=== PATIENT | female | born 1990 | race African-American/Black ===

== ENCOUNTER 2018-06-13 20:21 | Inpatient (IN) | payer MEDICAID ==
[~2018-06-13] VITALS: Ht 165.1 cm; Wt 89.8 kg
[2018-06-13 20:29] VITALS: BP 134/78
--- NOTE | 2018-06-13 20:32 | NUR ---
ER Nurse Note: Pt came from home c/o abdominal pain since 06/11/18. Per EMS, pt is constipated for 2 or 3 days. Pt a&ox4, VSS. Pt stated last BM was 06/10. Pt took stool softerner, and enema; no results. 10 pain on RUE, non radiating. Bowel sounds absent in the right and left upper quadrant. Abdomen soft. Pt cannot void; will ask again. Will continue to [facility].
[2018-06-13] MEDS ORDERED: Morphine Sulfate 4mg/ml Inj (IV USE ONLY) IVP ONE ×2 (20:45→23:15)
[2018-06-13 21:20] LABS: BASOPHILS % (AUTO) 0.9 % (0.0-2.0); EOSINOPHILS % (AUTO) 0.8 % (0.0-3.0); HEMATOCRIT 37.1 % (37.0-47.0); HEMOGLOBIN 11.6 G/DL (12.0-16.0); LYMPHOCYTES % (AUTO) 16.9 % (20.0-45.0); MEAN CORPUSCULAR VOLUME 74 FL (80-99); MONOCYTES % (AUTO) 6.3 % (1.0-10.0); NEUTROPHILS % (AUTO) 75.1 % (45.0-75.0); PLATELET COUNT 390 K/UL (150-450); RED BLOOD COUNT 4.98 M/UL (4.20-5.40); RED CELL DISTRIBUTION WIDTH 17.5 % (11.6-14.8); WHITE BLOOD COUNT 6.1 K/UL (4.8-10.8)
[2018-06-13 21:22] LABS: ANION GAP 9 mmol/L (5-15); BLOOD UREA NITROGEN 4 mg/dL (7-18); CALCIUM 9.5 MG/DL (8.5-10.1); CARBON DIOXIDE 28 MMOL/L (21-32); CHLORIDE 100 MMOL/L (98-107); CREATININE 1.1 MG/DL (0.55-1.30); POTASSIUM 2.8 MMOL/L (3.5-5.1); SODIUM 137 MMOL/L (136-145)
[2018-06-13 21:24] LABS: ALANINE AMINOTRANSFERASE 985 U/L (12-78); ALBUMIN 3.7 G/DL (3.4-5.0); ALBUMIN/GLOBULIN RATIO 0.8 (1.0-2.7); ALKALINE PHOSPHATASE 400 U/L (46-116); ASPARTATE AMINO TRANSFERASE 597 U/L (15-37); BILIRUBIN,TOTAL 2.9 MG/DL (0.2-1.0)
[2018-06-13 21:26] LABS: BILIRUBIN,DIRECT 2.4 MG/DL (0.0-0.3)
[2018-06-13 21:40] VITALS: BP 126/72
--- NOTE | 2018-06-13 21:44 | Emergency Room Report ---
History of Present Illness General Chief Complaint: Abdominal Pain Source: Patient Present Illness HPI This is a 27-year-old female complains of one day of severe right upper quadrant pain with no radiation. Associated with vomiting. No diarrhea. No exacerbating or relieving factor. She describes it as a cause of pain that is 10 out of 10 severity. She states that she did have a history of gallstones in the past but it went away. Allergies: Coded Allergies: No Known Allergies (Unverified , 06/13/18) Patient History Past Surgical History: none Pertinent Family History: none Last Menstrual Period: 06/11 Now: No : 1 Nursing Documentation-[facility] Past Medical History: No Stated History Review of Systems All Other Systems: negative except mentioned in HPI Physical Exam Vital Signs Date Time Temp Pulse Resp B/P (MAP) Pulse Ox O2 Delivery O2 Flow Rate FiO2 06/13/18 20:17 99.1 91 20 134/78 99 Room Air General Appearance: well appearing, no apparent distress Head: normocephalic, atraumatic ENT: hearing grossly normal, normal voice Neck: full range of motion, supple Respiratory: no respiratory distress, speaking full sentences Cardiovascular #1: regular rate, rhythm, no edema Gastrointestinal: normal inspection, other - RUQ tenderness, no guarding Musculoskeletal: no calf tenderness Neurologic: alert, normal gait Psychiatric: mood/affect normal Skin: no rash Medical Decision Making Diagnostic Impression: Primary Impression: Choledocholithiasis ER Course I did review the patient's ultrasound. This time, the patient will need to be admitted. And marsupial need to be ordered. We will await for admission for this patient. The patient was given IV morphine for pain. She was also given IV fluids as well. Laboratory Tests Test 06/13/18 20:44 White Blood Count 6.1 K/UL (4.8-10.8) Red Blood Count 4.98 M/UL (4.20-5.40) Hemoglobin 11.6 G/DL (12.0-16.0) L Hematocrit 37.1 % (37.0-47.0) Mean Corpuscular Volume 74 FL (80-99) L Mean Corpuscular Hemoglobin 23.3 PG (27.0-31.0) L Mean Corpuscular Hemoglobin Concent 31.3 G/DL (32.0-36.0) L Red Cell Distribution Width 17.5 % (11.6-14.8) H Platelet Count 390 K/UL (150-450) Mean Platelet Volume 5.8 FL (6.5-10.1) L Neutrophils (%) (Auto) 75.1 % (45.0-75.0) H Lymphocytes (%) (Auto) 16.9 % (20.0-45.0) L Monocytes (%) (Auto) 6.3 % (1.0-10.0) Eosinophils (%) (Auto) 0.8 % (0.0-3.0) Basophils (%) (Auto) 0.9 % (0.0-2.0) Sodium Level 137 MMOL/L (136-145) Potassium Level 2.8 MMOL/L (3.5-5.1) L Chloride Level 100 MMOL/L (98-107) Carbon Dioxide Level 28 MMOL/L (21-32) Anion Gap 9 mmol/L (5-15) Blood Urea Nitrogen 4 mg/dL (7-18) L Creatinine 1.1 MG/DL (0.55-1.30) Estimate Glomerular Filtration Rate 59.6 mL/min (>60) Glucose Level 99 MG/DL (74-106) Calcium Level 9.5 MG/DL (8.5-10.1) Total Bilirubin 2.9 MG/DL (0.2-1.0) H Direct Bilirubin 2.4 MG/DL (0.0-0.3) H Aspartate Amino Transferase (AST) 597 U/L (15-37) H Alanine Aminotransferase (ALT) 985 U/L (12-78) H Alkaline Phosphatase 400 U/L (46-116) H Total Protein 8.5 G/DL (6.4-8.2) H Albumin 3.7 G/DL (3.4-5.0) Globulin 4.8 g/dL Albumin/Globulin Ratio 0.8 (1.0-2.7) L Lipase 97 U/L (73-393) Human Chorionic Gonadotropin, Quant < 1 mIU/mL (1-6) L Last Vital Signs Date Time Temp Pulse Resp B/P (MAP) Pulse Ox O2 Delivery O2 Flow Rate FiO2 06/13/18 20:29 99.1 90 20 134/78 99 Room Air Status: improved Disposition: ADMITTED INPATIENT Condition: Serious ALIMARY JOR H. Jun 13, 2018 21:44
--- NOTE | 2018-06-13 22:19 | NUR ---
ER Nurse Note: Pt a&ox4, VSS, no signs of distrss. Pain meds given eariler; pt tolerated well. Pt complain of pain again; ERMD aware. Informed MD about K+; meds ordered. All orders completed per ERMD orders. All safety measures met; will continue to montior.
[2018-06-13] MEDS ORDERED: Morphine Sulfate 4mg/ml Inj (IV USE ONLY) IVP PRN (23:30)
[2018-06-13 23:45] VITALS: BP 132/78
--- NOTE | 2018-06-13 23:45 | NUR ---
NURSE NOTES: Pt came up to unit via gurney w/all belongings accounted for and ambulated to bed w/o incident. Pt A&Ox4, VSS, and c/o 5/10 pain; IV site intact/asymptomatic; and hypoactive bowel sounds auscultated on assessment. Explained to pt that she is to have nothing by mouth except ice chips and PO meds; pt verbalized understanding. Will contact MD for admission orders; will continue to monitor.
--- NOTE | 2018-06-13 23:45 | NUR ---
ER Nurse Report: Report given to PAMELA Hurtado in [place] for continuity of care. Pt a&ox4, VSS, no signs of distress. Pain meds given twice for pain. All belongings taken with pt.
[2018-06-14] VITALS: BP 131/81
[2018-06-14] MEDS: HYDROmorphone 1mg/ml Carpuject IVP PRN ×3 (03:21→11:42)
[2018-06-14 04:00] VITALS: BP 125/76
--- NOTE | 2018-06-14 07:26 | NUR ---
HAND-OFF: Report given to PAMELA Palomino.
--- NOTE | 2018-06-14 07:52 | NUR ---
NURSE NOTES: AWAKE.ALERT. PAIN SCALE 10/10. GIVEN DILAUDID 1MG IV ORDERED.NPO MAINTAINED . IN NO DISTRESS.
[2018-06-14 08:00] VITALS: BP 124/66
[2018-06-14] MEDS: cefTRIAXone 1 GM in NS 55 ML IVPB SCH (08:43)
[2018-06-14] MEDS ORDERED: Lidocaine 1% Plain 30 ml INJ SCH (09:00)
--- NOTE | 2018-06-14 09:40 | Diagnostic Imaging Report ---
Indication: Abdominal pain, right upper quadrant pain Technique: Daly-scale and duplex images of the upper abdomen were obtained Comparison: none Findings: Gallbladder demonstrates gallstones. No gallbladder wall thickening or pericholecystic fluid. Technologist reports that the sonographic Parkinson's sign is positive. Common bile duct measures 7 mm in diameter. No intrahepatic biliary ductal dilatation. Liver demonstrates borderline increased echogenicity, no focal abnormality. Portal vein and hepatic veins are patent. Pancreas is unremarkable. Spleen is unremarkable. Left kidney measures 10.8 cm in length. Right kidney measures 10.2 cm length. Both kidneys demonstrate normal echogenicity. There is no hydronephrosis. No focal abnormality . Abdominal aorta is partially obscured by bowel gas, visualized portions are non-aneurysmal . Impression: Cholelithiasis. Although there is no gallbladder wall thickening, positive sonographic Parkinson's sign raises concern for acute cholecystitis Mildly ectatic common bile duct. Correlate with liver function tests Slightly increased hepatic echogenicity, could indicate hepatocellular disease such as fatty change
--- NOTE | 2018-06-14 11:26 | GI Initial Consult Note ---
History of Present Illness General Date patient seen: Jun 14, 2018 Time patient seen: 11:26 Reason for Hospitalization: Abdominal Pain Referring physician: СВЕТЛАНА Reason for Consultation: ABDOMINAL PAIN Present Illness HPI This is a 27-year-old female complains of one day of severe right upper quadrant pain with no radiation. Associated with vomiting. No diarrhea. No exacerbating or relieving factor. She describes it as a cause of pain that is 10 out of 10 severity. She states that she did have a history of gallstones in the past but it went away. GI consulted for abdominal pain and abnormal liver function test. Patient seen , awake alert and oriented x4 in no apparent distress has complaint of severe right upper quadrant abdominal pain. Patient denies any past medical history. Abdominal ultrasound positive Parkinson sign suggestive of possible cholecystitis and possible hepatic cellular disease. Patient denies any tobacco, drug, alcohol use. No history of endoscopic or colonoscopy. Labs reviewed; patient presents with microcytic anemia, hypokalemia and abnormal liver function tests. Allergies: Coded Allergies: No Known Allergies (Unverified , 06/13/18) Patient History History Provided By: Patient, Medical Record [facility] Narrative Past Surgical History: none Pertinent Family History: none Last Menstrual Period: 06/11 Now: No : 1 Social History: Denies: smoking, alcohol use, drug use, other Review of Systems All Other Systems: negative except mentioned in HPI Physical Exam Vital Signs Date Time Temp Pulse Resp B/P (MAP) Pulse Ox O2 Delivery O2 Flow Rate FiO2 06/13/18 20:17 99.1 91 20 134/78 99 Room Air Sp02 EP Interpretation: reviewed, normal Labs Laboratory Tests Test 06/13/18 20:44 White Blood Count 6.1 K/UL (4.8-10.8) Red Blood Count 4.98 M/UL (4.20-5.40) Hemoglobin 11.6 G/DL (12.0-16.0) L Hematocrit 37.1 % (37.0-47.0) Mean Corpuscular Volume 74 FL (80-99) L Mean Corpuscular Hemoglobin 23.3 PG (27.0-31.0) L Mean Corpuscular Hemoglobin Concent 31.3 G/DL (32.0-36.0) L Red Cell Distribution Width 17.5 % (11.6-14.8) H Platelet Count 390 K/UL (150-450) Mean Platelet Volume 5.8 FL (6.5-10.1) L Neutrophils (%) (Auto) 75.1 % (45.0-75.0) H Lymphocytes (%) (Auto) 16.9 % (20.0-45.0) L Monocytes (%) (Auto) 6.3 % (1.0-10.0) Eosinophils (%) (Auto) 0.8 % (0.0-3.0) Basophils (%) (Auto) 0.9 % (0.0-2.0) Sodium Level 137 MMOL/L (136-145) Potassium Level 2.8 MMOL/L (3.5-5.1) L Chloride Level 100 MMOL/L (98-107) Carbon Dioxide Level 28 MMOL/L (21-32) Anion Gap 9 mmol/L (5-15) Blood Urea Nitrogen 4 mg/dL (7-18) L Creatinine 1.1 MG/DL (0.55-1.30) Estimat Glomerular Filtration Rate 59.6 mL/min (>60) Glucose Level 99 MG/DL (74-106) Calcium Level 9.5 MG/DL (8.5-10.1) Total Bilirubin 2.9 MG/DL (0.2-1.0) H Direct Bilirubin 2.4 MG/DL (0.0-0.3) H Aspartate Amino Transf (AST/SGOT) 597 U/L (15-37) H Alanine Aminotransferase (ALT/SGPT) 985 U/L (12-78) H Alkaline Phosphatase 400 U/L (46-116) H Total Protein 8.5 G/DL (6.4-8.2) H Albumin 3.7 G/DL (3.4-5.0) Globulin 4.8 g/dL Albumin/Globulin Ratio 0.8 (1.0-2.7) L Lipase 97 U/L (73-393) Human Chorionic Gonadotropin, Quant < 1 mIU/mL (1-6) L General Appearance: well appearing, no apparent distress, alert, obese Head: normocephalic EENT: PERRL/EOMI, normal ENT inspection Neck: supple Respiratory: normal breath sounds, no respiratory distress Cardiovascular: normal rate Gastrointestinal: normal inspection, non tender, soft, normal bowel sounds, non -distended Rectal: deferred Genitourinary: no CVA tenderness Musculoskeletal: normal inspection, back normal Neurologic: normal inspection, alert, oriented x3, responsive Psychiatric: normal inspection, judgement/insight normal, memory normal Skin: normal inspection, normal color, no rash, warm/dry, palpation normal, well hydrated Lymphatic: normal inspection, no adenopathy Current Medications Current Medications Medications (Trade) Dose Ordered Sig/Joselin Route PRN Reason Start Time Stop Time Status Last Admin Dose Admin Acetaminophen (Tylenol) 650 mg Q4H PRN ORAL Mild Pain/Temp > 100.5 06/14/18 00:30 07/14/18 00:29 Ceftriaxone Sodium 1 gm/ Sodium Chloride 55 ml @ 110 mls/hr DAILY IVPB 06/14/18 09:00 06/21/18 08:59 06/14/18 08:43 Hydromorphone HCl (Dilaudid) 1 mg Q4H PRN IVP For Pain 06/14/18 00:15 06/21/18 00:14 06/14/18 07:49 Ondansetron HCl (Zofran) 4 mg PRN PRN IVP Nausea & Vomiting 06/13/18 23:30 Sodium Chloride 1,000 ml @ 75 mls/hr [id number] IV 06/14/18 00:15 07/14/18 00:14 06/14/18 00:46 GI: Plan Problems: (1) Cholelithiasis (2) Cholecystitis (3) Choledocholithiasis Plan MRCP ordered, ERCP if necessary. Follow-up surgical recommendations for possible cholecystectomy Maintain n.p.o. plus IV fluids Pain management anemia work up OB stool r/o GI bleed monitor H&H, prn transfusions bowel regime ppi fu labs We will follow with additional recommendations post imaging study Discussed with Dr. Lin. Thank you for this patient referral, we will follow. The patient was seen and examined at bedside and all new and available data was reviewed in the patients chart. I agree with the above findings, impression and plan. (Patient seen earlier today. Signature stamp does not reflect patient encounter time.). - Bradley Lin MD UPDATE @ 1600. MRCP noted. ERCP scheduled for tomorrow. Mauro Zimmer [employer] Jun 14, 2018 11:26
[2018-06-14 12:00] VITALS: BP 118/62
[2018-06-14] MEDS: D5 1/2NS w/KCl 20mEq 1,000 ML IV SCH (14:05)
--- NOTE | 2018-06-14 14:28 | NUR ---
CASE MANAGEMENT:REVIEW 27 YR OLD FEMALE BIBA FROM HOME CC: ABDOMINAL PAIN AND VOMITING SI: CHOLEDOCHOLITHIASIS 99.2 91 20 134/78 99% ON RA K-2.8 TBILI+2.9 DBILI+2.4 AST/ALT+597/985 IS: IV ZOFRAN 1L NS BOLUS IV MORPHINE X2 KCL PO ABDOMINAL US : TO MED/SURG 3EAST IS: IV ROCEPHIN Q24 IVF@75/HR PLAN: PAIN MGMT MRCP GI CONSULT INTERQUAL CRITERIA MET
--- NOTE | 2018-06-14 15:17 | Diagnostic Imaging Report ---
Indication: Severe right upper quadrant pain, vomiting, 10 out of 10 in severity, history of gallstones Technique: Coronal and axial single shot fast spin-echo breath-hold, axial T2 FRFSE, 2-D thick slab MRCP, AXIAL 2-D FIESTA fat saturated, axial 3-D dual echo breath-hold, water weighted axial LAVA FLEX, revealed 3-D MRCP images were obtained of the abdomen. MIP reconstructions were generated of the bile ducts Comparison: none Findings: The common bile duct, common hepatic duct, and central intrahepatic ducts are mildly dilated, common bile duct measuring up to 8 mm in diameter. Downstream in the common bile duct there is a low signal structure measuring 9 mm in diameter, consistent with a common bile duct stone. A few gallstones are also seen within the gallbladder. The gallbladder is not distended. However, gallbladder wall does appear minimally edematous. There does appear to be a 7 mm stone in the gallbladder neck. The liver, pancreas, spleen, adrenals, kidneys are unremarkable. The coronal images demonstrate a possible 5 cm cyst in the pelvis. Impression: 9 mm demonstrate common bile duct stone. Resultant extrahepatic and central intrahepatic biliary ductal dilatation Cholelithiasis. Possible gallbladder neck stone. Mild gallbladder wall edema could indicate only acute cholecystitis. Consider nuclear medicine hepatobiliary scan for better characterization 5 cm right ovarian cyst, presumably benign. No further follow-up necessary Salient findings discussed with patient's nurse at the time of interpretation
--- NOTE | 2018-06-14 15:43 | NUR ---
NURSE NOTES: mri abdomen report called to randell tiwari np . will write order.
[2018-06-14 16:00] VITALS: BP 137/75
--- NOTE | 2018-06-14 19:23 | NUR ---
NURSE NOTES: just medicated for pain. npo maintained. for gi procedure tomorrow.
--- NOTE | 2018-06-14 19:24 | NUR ---
HAND-OFF: Report given to Melo PÉREZ RN.
--- NOTE | 2018-06-14 19:30 | NUR ---
NURSE NOTES: Pt is in bed, awake and verbal. No acute distress noted. Vitals stable. Pt is NPO. Pt is awaiting EGD and ERCP tomorrow. D5b 1/2 NS with 20 mEq KCl running at 75ml/hr. Pain medication given as ordered PRN. Bed low in position,side rails uip and call light within reach.
[2018-06-14 20:00] VITALS: BP 138/79
--- NOTE | 2018-06-14 20:45 | History and Physical Report ---
DATE OF ADMISSION: 06/13/2018 HISTORY OF PRESENT ILLNESS: This is a 27-year-old female who has an unremarkable past history. She came to the hospital with abdominal pain. This has been going on for several days. She was seen and worked up in the ER and found to have markedly elevated LFTs and bilirubin. She also underwent imaging studies, which showed evidence of choledocholithiasis. The patient was seen by Gastroenterology and plans are noted for ERCP. PAST MEDICAL HISTORY: None. PAST SURGICAL HISTORY: None. The patient denies any headaches, hematemesis, melena, hematochezia, night sweats, or weight loss. PHYSICAL EXAMINATION: GENERAL: Reveals an obese, young female. VITAL SIGNS: T-max 99.1, heart rate 94, respiratory rate 20, she is afebrile, and blood pressure 124/70. HEENT: Unremarkable. LUNGS: Clear breath sounds bilaterally. ABDOMEN: Soft with mild discomfort. EXTREMITIES: There is no peripheral edema, cyanosis, or clubbing. NEUROLOGICAL: Nonfocal. LABORATORY DATA: Lab testing shows normal CBC however. Chemistries show ALT 95, AST 597, bilirubin 2.9. Imaging studies show evidence of choledocholithiasis and cholelithiasis. IMPRESSION: Obstructive jaundice with transaminitis. DISCUSSION: We will consult Gastroenterology. I suspect the patient will need ERCP. I will initiate fluids and pain control. We will follow carefully. Appreciate GI evaluation. Brain Mcfadden M.D. DR: SHANELL JOB#: [id number] CC:
[2018-06-14] MEDS ORDERED: Tubing IV Secondary IV ONE (22:26)
[2018-06-15] VITALS (11 sets, daily range): BP systolic 114–143; BP diastolic 67–89
[2018-06-15] MEDS: D5 1/2NS w/KCl 20mEq 1,000 ML IV SCH ×3 (00:45→22:15)
--- NOTE | 2018-06-15 01:00 | NUR ---
NURSE NOTES: Pt is in bed, asleep. No acute distress noted. Pt is currently NPO.
--- NOTE | 2018-06-15 07:05 | NUR ---
HAND-OFF: Report given to Georgette Ledezma RN.
[2018-06-15 07:08] LABS: BASOPHILS % (AUTO) 2.6 % (0.0-2.0); EOSINOPHILS % (AUTO) 1.7 % (0.0-3.0); HEMATOCRIT 38.2 % (37.0-47.0); HEMOGLOBIN 11.8 G/DL (12.0-16.0); LYMPHOCYTES % (AUTO) 22.1 % (20.0-45.0); MEAN CORPUSCULAR VOLUME 76 FL (80-99); MONOCYTES % (AUTO) 4.4 % (1.0-10.0); NEUTROPHILS % (AUTO) 69.2 % (45.0-75.0); PLATELET COUNT 345 K/UL (150-450); RED BLOOD COUNT 5.06 M/UL (4.20-5.40); RED CELL DISTRIBUTION WIDTH 18.1 % (11.6-14.8); WHITE BLOOD COUNT 5.6 K/UL (4.8-10.8)
[2018-06-15] MEDS ORDERED: Iothalamate Meglumine 60% 30ML INJ ONE ×2 (07:19→08:30)
--- NOTE | 2018-06-15 07:32 | NUR ---
NURSE NOTES: AWAKE/ALERT. NPO MAINTAINED FOR EGD AND ERCP. NO DISTRESS.
[2018-06-15 07:34] LABS: INR 1.1 (0.9-1.1)
[2018-06-15] MEDS ORDERED: fentaNYL 100 mcg/2 mL IV ONE (07:45)
[2018-06-15] MEDS ORDERED: Midazolam 2mg/2ml Inj ONE (07:45)
[2018-06-15 07:49] LABS: ALANINE AMINOTRANSFERASE 797 U/L (12-78); ALBUMIN 3.1 G/DL (3.4-5.0); ALBUMIN/GLOBULIN RATIO 0.6 (1.0-2.7); ALKALINE PHOSPHATASE 414 U/L (46-116); ANION GAP 9 mmol/L (5-15); ASPARTATE AMINO TRANSFERASE 353 U/L (15-37); BILIRUBIN,TOTAL 3.6 MG/DL (0.2-1.0); BLOOD UREA NITROGEN 4 mg/dL (7-18); CALCIUM 9.3 MG/DL (8.5-10.1); CARBON DIOXIDE 28 MMOL/L (21-32); CHLORIDE 104 MMOL/L (98-107); CREATININE 0.9 MG/DL (0.55-1.30); FERRITIN 87 NG/ML (8-388); POTASSIUM 3.9 MMOL/L (3.5-5.1); SODIUM 141 MMOL/L (136-145)
--- NOTE | 2018-06-15 07:57 | Anethesia Preoperative Eval ---
Anesthesia Pre-op PMH/ROS General Date of Evaluation: Jun 15, 2018 Time of Evaluation: 07:55 Anesthesiologist: Gladis Baker CRNA ASA Score: ASA 2 Mallampati Score Class I : Soft palate, uvula, fauces, pillars visible Class II: Soft palate, uvula, fauces visible Class III: Soft palate, base of uvula visible Class IV: Only hard plate visible Mallampati Classification: Class II Surgeon: Delia Diagnosis: Choledocholisthiasis Surgical Procedure: ERCP Anesthesia History: none Family History: no anesthesia problems Allergies: Coded Allergies: No Known Allergies (Unverified , 06/13/18) Medications: see eMAR Patient NPO?: Yes NPO Date: Jun 15, 2018 NPO Time: 00:00 Past Medical History Gastrointestinal/Genitourinary: Reports: other - elevated LFT, (+) choledocholisthiasis/cholelisthiasis by MRI HEENT: Reports: other - denies WILLA but snores heavily Other: obesity PMH Narrative: as above PSxH Narrative: c/s 2 months ago Anesthesia Pre-op Phys. Exam Physician Exam Last Vital Signs Date Time Temp Pulse Resp B/P (MAP) Pulse Ox O2 Delivery O2 Flow Rate FiO2 06/15/18 04:00 98.2 90 17 129/76 (93) 96 06/14/18 21:00 Room Air Constitutional: NAD, other - obese Neurologic: CN 2-12 intact Cardiovascular: RRR Respiratory: CTA Gastrointestinal: S/NT/ND Airway Exam Mallampati Score: Class II MO: full Neck: FROM TMD: > 3FB ROM: full Teeth: intact Dentures: no upper, no lower Anesthesia Pre-op A/P Labs Hematology Test 06/15/18 06:45 White Blood Count 5.6 K/UL (4.8-10.8) Red Blood Count 5.06 M/UL (4.20-5.40) Hemoglobin 11.8 G/DL (12.0-16.0) L Hematocrit 38.2 % (37.0-47.0) Mean Corpuscular Volume 76 FL (80-99) L Mean Corpuscular Hemoglobin 23.3 PG (27.0-31.0) L Mean Corpuscular Hemoglobin Concent 30.9 G/DL (32.0-36.0) L Red Cell Distribution Width 18.1 % (11.6-14.8) H Platelet Count 345 K/UL (150-450) Mean Platelet Volume 5.5 FL (6.5-10.1) L Neutrophils (%) (Auto) 69.2 % (45.0-75.0) Lymphocytes (%) (Auto) 22.1 % (20.0-45.0) Monocytes (%) (Auto) 4.4 % (1.0-10.0) Eosinophils (%) (Auto) 1.7 % (0.0-3.0) Basophils (%) (Auto) 2.6 % (0.0-2.0) H Reticulocyte Count Pending Coagulation Test 06/15/18 06:45 Prothrombin Time 11.3 SEC (9.30-11.50) Prothromb Time International Ratio 1.1 (0.9-1.1) Activated Partial Thromboplast Time 28 SEC (23-33) Chemistry Test 06/15/18 06:45 Sodium Level 141 MMOL/L (136-145) Potassium Level 3.9 MMOL/L (3.5-5.1) Chloride Level 104 MMOL/L (98-107) Carbon Dioxide Level 28 MMOL/L (21-32) Anion Gap 9 mmol/L (5-15) Blood Urea Nitrogen 4 mg/dL (7-18) L Creatinine 0.9 MG/DL (0.55-1.30) Estimat Glomerular Filtration Rate > 60 mL/min (>60) Glucose Level 65 MG/DL (74-106) L Calcium Level 9.3 MG/DL (8.5-10.1) Iron Level Pending Unsaturated Iron Binding Pending Ferritin 87 NG/ML (8-388) Total Bilirubin 3.6 MG/DL (0.2-1.0) H Direct Bilirubin 3.0 MG/DL (0.0-0.3) H Aspartate Amino Transf (AST/SGOT) 353 U/L (15-37) H Alanine Aminotransferase (ALT/SGPT) 797 U/L (12-78) H Alkaline Phosphatase 414 U/L (46-116) H Total Protein 8.0 G/DL (6.4-8.2) Albumin 3.1 G/DL (3.4-5.0) L Globulin 4.9 g/dL Albumin/Globulin Ratio 0.6 (1.0-2.7) L Carcinoembryonic Antigen Pending Vitamin B12 Level Pending Folate Pending Thyroid Stimulating Hormone (TSH) 0.850 uiU/mL (0.358-3.740) Free Thyroxine 1.28 NG/DL (0.76-1.46) Risk Assessment & Plan Assessment: ASA 2, ok to proceed Status Change Before Surgery: No Pre-Antibiotics Drug: TBD Given Within 1 Hr of Incision: No Gladis Baker CRNA Jun 15, 2018 07:57
[2018-06-15] MEDS ORDERED: D5NS 1000ml IV ONE (08:00)
[2018-06-15] MEDS ORDERED: Propofol 200mg/20ml IV ONE (08:00)
--- NOTE | 2018-06-15 08:07 | NUR ---
NURSE NOTES: TO [facility] FOR EGD AND ERCP.
--- NOTE | 2018-06-15 08:14 | Pre-Procedure Note/Attestation ---
Pre-Procedure Note/Attestation Complete Prior to Procedure Planned Procedure: not applicable Procedure Narrative: ercp Indications for Procedure Pre-Operative Diagnosis: choledocholithiasis Attestation I attest that I discussed the nature of the procedure; its benefits; risks and complications; and alternatives (and the risks and benefits of such alternatives ), prior to the procedure, with the patient (or the patient's legal service liaison representative). I attest that, if there was a reasonable possibility of needing a blood transfusion, the patient (or the patient's legal service liaison representative) was given the [facility] standardized written summary, pursuant to the Melvin Alyssia Blood Safety Act ([place] Health and Safety Code # 1645, as amended). I attest that I re-evaluated the patient just prior to the surgery and that there has been no change in the patient's H&P, except as documented below: Bradley Lin MD Jun 15, 2018 08:14
[2018-06-15] MEDS ORDERED: NS 500ML IVPB ONE (08:18)
[2018-06-15 08:23] LABS: % IRON SATURATION 23 % (15-50); IRON 72 ug/dL (50-175); TOTAL IRON BINDING CAPACITY 317 ug/dL (250-450)
--- NOTE | 2018-06-15 08:47 | Endoscopy Procedure Note ---
Endoscopy Procedure Note General Indication for Procedure: choledocholithiasis Procedures Performed: ERCP Operative Findings/Diagnosis: same Specimen: none Pt Tolerated Procedure Well: Yes Estimated Blood Loss: none Anesthesia Anesthesiologist: tiera Anesthesia: MAC Inserted Devices Implant(s) used?: No GI Core Measures 50 yrs or older w/o bx or poly: Not Applicable 10yrs. F/U not recommended: Not Applicable Bradley Lin MD Jun 15, 2018 08:47
--- NOTE | 2018-06-15 09:02 | Pulmonology Progress Note ---
Assessment/Plan Assessment/Plan IMPRESSION: Obstructive jaundice with transaminitis. DISCUSSION: Will need cholecystectomy Continue IV fluids pain control Subjective Interval Events: S/p ERCP Constitutional: Reports: no symptoms HEENT: Repors: no symptoms Respiratory: Reports: no symptoms Cardiovascular: Reports: no symptoms Gastrointestinal/Abdominal: Reports: nausea Genitourinary: Reports: no symptoms Neurologic: Reports: no symptoms Allergies: Coded Allergies: No Known Allergies (Unverified , 06/13/18) Objective Last 24 Hour Vital Signs Date Time Temp Pulse Resp B/P (MAP) Pulse Ox O2 Delivery O2 Flow Rate FiO2 06/15/18 04:00 98.2 90 17 129/76 (93) 96 06/15/18 00:00 98.3 74 19 134/75 (94) 95 06/14/18 21:00 Room Air 06/14/18 20:00 98.5 70 18 138/79 (98) 98 06/14/18 19:39 98.4 06/14/18 16:00 98.4 89 18 137/75 (95) 98 06/14/18 12:12 97.2 06/14/18 12:00 97.2 63 18 118/62 (80) 98 06/14/18 09:05 Room Air Intake and Output 06/14/18 06/15/18 19:00 07:00 Intake Total 730.0 ml 900 ml Balance 730.0 ml 900 ml Intake IV Total 730.0 ml 900 ml # Voids 2 General Appearance: no acute distress HEENT: normocephalic Respiratory/Chest: chest wall non-tender, lungs clear Cardiovascular: normal peripheral pulses, normal rate Abdomen: normal bowel sounds, no mass Extremities: no cyanosis Laboratory Tests 06/15/18 06:45: White Blood Count 5.6, Red Blood Count 5.06, Hemoglobin 11.8L, Hematocrit 38.2, Mean Corpuscular Volume 76L, Mean Corpuscular Hemoglobin 23.3L, Mean Corpuscular Hemoglobin Concent 30.9L, Red Cell Distribution Width 18.1H, Platelet Count 345, Mean Platelet Volume 5.5L, Neutrophils (%) (Auto) 69.2, Lymphocytes (%) (Auto) 22.1, Monocytes (%) (Auto) 4.4, Eosinophils (%) (Auto) 1.7, Basophils (%) (Auto) 2.6H, Reticulocyte Count [Pending], Prothrombin Time 11.3, Prothromb Time International Ratio 1.1, Activated Partial Thromboplast Time 28, Sodium Level 141, Potassium Level 3.9, Chloride Level 104, Carbon Dioxide Level 28, Anion Gap 9, Blood Urea Nitrogen 4L, Creatinine 0.9, Estimat Glomerular Filtration Rate > 60, Glucose Level 65L, Calcium Level 9.3, Iron Level 72, Total Iron Binding Capacity 317, Percent Iron Saturation 23, Unsaturated Iron Binding 245, Ferritin 87, Total Bilirubin 3.6H, Direct Bilirubin 3.0H, Aspartate Amino Transf (AST/SGOT) 353H, Alanine Aminotransferase (ALT/SGPT) 797H, Alkaline Phosphatase 414H, Total Protein 8.0, Albumin 3.1L, Globulin 4.9, Albumin/Globulin Ratio 0.6L, Carcinoembryonic Antigen [Pending], Vitamin B12 Level 1250H, Folate 30.7, Thyroid Stimulating Hormone (TSH) 0.850, Free Thyroxine 1.28 Current Medications Medications (Trade) Dose Ordered Sig/Joselin Route PRN Reason Start Time Stop Time Status Last Admin Dose Admin Acetaminophen (Tylenol) 650 mg Q4H PRN ORAL Mild Pain/Temp > 100.5 06/14/18 00:30 07/14/18 00:29 Ceftriaxone Sodium 1 gm/ Sodium Chloride 55 ml @ 110 mls/hr DAILY IVPB 06/14/18 09:00 06/21/18 08:59 06/14/18 08:43 Dextrose/ Electrolytes 1,000 ml @ 75 mls/hr [id number] IV 06/14/18 12:00 07/14/18 11:59 06/15/18 00:45 Hydromorphone HCl (Dilaudid) 2 mg Q4H PRN IVP For Pain 06/14/18 14:30 06/21/18 14:29 06/15/18 03:14 Ondansetron HCl (Zofran) 4 mg PRN PRN IVP Nausea & Vomiting 06/13/18 23:30 Brain Mcfadden MD Jun 15, 2018 09:02
--- NOTE | 2018-06-15 09:06 | Immediate Post-Op Evaluation ---
Immediate Post-Op Evalulation Immediate Post-Op Evalulation Procedure: ERCP. sphincterotomy, gallstone removal Date of Evaluation: Jun 15, 2018 Time of Evaluation: 08:51 IV Fluids: 0.9% NS 300 ml, D5/09% NS 100 ml Blood Pressure Systolic: 122 Blood Pressure Diastolic: 79 Pulse Rate: 95 Respiratory Rate: 16 O2 Sat by Pulse Oximetry: 100 Temperature (Fahrenheit): 97.9 Pain Score (1-10): 0 Nausea: No Vomiting: No Complications none Patient Status: awake, patent Hydration Status: adequate Given Within 1 Hr of Incision: Gladis Cannon CRNA Jun 15, 2018 09:06
[2018-06-15] MEDS: cefTRIAXone 1 GM in NS 55 ML IVPB SCH (09:45)
--- NOTE | 2018-06-15 11:15 | Diagnostic Imaging Report ---
Indication: Abdominal pain. ERCP. Findings: Fluoroscopically captured images of the right upper quadrant of the abdomen demonstrate an endoscope with cannulation of the common bile duct and injection of contrast material. Fluoroscopic time 167 seconds. 6 fluoroscopic images obtained. Cannulation of the CBD with injection of contrast demonstrated. The pancreatic duct is not seen. Impression: ERCP as above
--- NOTE | 2018-06-15 13:25 | 48 Hour Post Anesthesia Eval ---
Post Anesthesia Evaluation Procedure: ERCP. sphincterotomy, gallstone removal Date of Evaluation: Jun 15, 2018 Time of Evaluation: 13:23 Blood Pressure Systolic: 114 0: 67 Pulse Rate: 93 Respiratory Rate: 18 Temperature (Fahrenheit): 98.8 O2 Sat by Pulse Oximetry: 99 Airway: patent Nausea: No Vomiting: No Pain Intensity: 5 Hydration Status: adequate Cardiopulmonary Status: stable Mental Status/LOC: patient returned to baseline Follow-up Care/Observations: per hospitalist Post-Anesthesia Complications: none Follow-up care needed: N/A Gladis Baker CRNA Jun 15, 2018 13:25
--- NOTE | 2018-06-15 15:30 | Procedure Note ---
DATE OF PROCEDURE: 06/15/2018 SURGEON: Bradley Lin M.D. REFERRING PHYSICIAN: Brain Mcfadden M.D. PROCEDURE: ERCP. ANESTHESIA: Per Gladis DE LA CRUZ. INSTRUMENT: Olympus adult flexible ERCP scope. REASON FOR PROCEDURE: The procedure, risks, benefits, and possible consequences, including hemorrhage, aspiration, perforation and infection, and alternative treatments, were explained to the patient/legal guardian by Dr. Bradley Lin and the patient/legal guardian understood and accepted these risks. INDICATION: Choledocholithiasis. PROCEDURE IN DETAIL: After informed consent was obtained and the patient was adequately sedated, ERCP scope was advanced from mouth into the second portion of the duodenum. Using a sphincterotome, common bile duct was selectively cannulated. Initial cholangiogram showed mildly dilated common duct with multiple filling defects in the distal common bile duct. Then, over a guidewire, we performed 95% sphincterotomy. Then, a balloon was used to sweep the duct multiple times to remove three small stones from distal common bile duct. After the stones were removed, we performed balloon occlusion cholangiogram. It showed no further filling defect in the common bile duct. The flow of contrast from common bile duct into the lumen of the duodenum was excellent, so no stent was placed. We could not inject the cystic duct or gallbladder despite of putting a balloon in that area. The patient tolerated the procedure very well without any complication. SUMMARY OF FINDINGS: 1. Choledocholithiasis. 2. Status post ERCP, sphincterotomy stone removal. RECOMMENDATIONS: 1. Follow labs. 2. The patient to be seen by a surgeon for possible inpatient cholecystectomy. 3. Start clears and advance as tolerated. I want to thank Dr. Mcfadden for this kind referral. Bradley Lin M.D. DR: CATRACHO JOB#: [id number] CC:
--- NOTE | 2018-06-15 15:55 | Consultation ---
History of Present Illness General Date patient seen: Jun 15, 2018 Reason for Hospitalization: Abdominal Pain Present Illness HPI 27 year old female otherwise healthy presented with abdominal pain. On work up noted to have choledocholithiasis. s/p ERCP today with stone extraction. still complaining of abdominal pain. surgery called to evaluate and discuss care plans with patient. patient seen, chart reviewed, patient examined. Allergies: Coded Allergies: No Known Allergies (Unverified , 06/13/18) Patient History Healthcare decision maker Resuscitation status Full Code Advanced Directive on File Review of Systems Review of Symptoms General ROS: no weight loss or fever Psychological ROS: no depression or mood changes, no memory loss Ophthalmic ROS: no visual changes or eye irritation ENT ROS: no nasal congestion, hearing loss, dizziness Allergy and Immunology ROS: no allergic symptoms or urticaria Hematological and Lymphatic ROS: no swollen glands, unusual bleeding or bruising Endocrine ROS: no polyuria, polydipsia, weight changes, temperature intolerance Respiratory ROS: no cough, shortness of breath, or wheezing Cardiovascular ROS: no chest pain or dyspnea on exertion Gastrointestinal ROS: denies abdominal pain, bright red blood in stool. Musculoskeletal ROS: no myalgias or arthralgias Neurological ROS: no TIA or stroke symptoms Dermatological ROS: no new or changing skin lesions, rashes or pruritis Physical Exam Physical Exam General appearance: alert, cooperative, no distress, appears stated age Head: Normocephalic, without obvious abnormality, atraumatic Eyes: conjunctivae/corneas clear. PERRL, EOM's intact. Fundi benign Throat: Lips, mucosa, and tongue normal. Teeth and gums normal Neck: supple, symmetrical, trachea midline, no adenopathy, thyroid: not enlarged, symmetric, no tenderness/mass/nodules, no carotid bruit and no JVD Lungs: clear to auscultation bilaterally Heart: regular rate and rhythm, S1, S2 normal, no murmur, click, rub or gallop Abdomen: soft, RUQ tender. Bowel sounds normal. No masses, no organomegaly Extremities: extremities normal, atraumatic, no cyanosis or edema Pulses: 2+ and symmetric Skin: Skin color, texture, turgor normal. No rashes or lesions Neurologic: Grossly normal Last 24 Hour Vital Signs Date Time Temp Pulse Resp B/P (MAP) Pulse Ox O2 Delivery O2 Flow Rate FiO2 06/15/18 14:52 98.8 06/15/18 13:25 93 18 99 06/15/18 12:00 98.8 93 18 114/67 (83) 99 06/15/18 09:20 97.8 85 24 121/88 96 Room Air 06/15/18 09:10 92 22 129/89 98 Room Air 06/15/18 09:06 95 16 100 06/15/18 09:03 Room Air 06/15/18 09:00 89 24 126/84 100 Nasal Cannula 3 06/15/18 08:55 94 20 122/79 100 Nasal Cannula 3 06/15/18 08:51 97.9 97 18 143/85 100 Nasal Cannula 3 06/15/18 08:00 98.4 81 18 140/86 (104) 100 06/15/18 04:00 98.2 90 17 129/76 (93) 96 06/15/18 00:00 98.3 74 19 134/75 (94) 95 06/14/18 21:00 Room Air 06/14/18 20:00 98.5 70 18 138/79 (98) 98 06/14/18 16:00 98.4 89 18 137/75 (95) 98 Intake and Output 06/14/18 06/15/18 19:00 07:00 Intake Total 730.0 ml 900 ml Balance 730.0 ml 900 ml IV Total 730.0 ml 900 ml # Voids 2 Laboratory Tests Test 06/15/18 06:45 White Blood Count 5.6 K/UL (4.8-10.8) Red Blood Count 5.06 M/UL (4.20-5.40) Hemoglobin 11.8 G/DL (12.0-16.0) L Hematocrit 38.2 % (37.0-47.0) Mean Corpuscular Volume 76 FL (80-99) L Mean Corpuscular Hemoglobin 23.3 PG (27.0-31.0) L Mean Corpuscular Hemoglobin Concent 30.9 G/DL (32.0-36.0) L Red Cell Distribution Width 18.1 % (11.6-14.8) H Platelet Count 345 K/UL (150-450) Mean Platelet Volume 5.5 FL (6.5-10.1) L Neutrophils (%) (Auto) 69.2 % (45.0-75.0) Lymphocytes (%) (Auto) 22.1 % (20.0-45.0) Monocytes (%) (Auto) 4.4 % (1.0-10.0) Eosinophils (%) (Auto) 1.7 % (0.0-3.0) Basophils (%) (Auto) 2.6 % (0.0-2.0) H Reticulocyte Count 0.8 % (0.0-2.0) Prothrombin Time 11.3 SEC (9.30-11.50) Prothromb Time International Ratio 1.1 (0.9-1.1) Activated Partial Thromboplast Time 28 SEC (23-33) Sodium Level 141 MMOL/L (136-145) Potassium Level 3.9 MMOL/L (3.5-5.1) Chloride Level 104 MMOL/L (98-107) Carbon Dioxide Level 28 MMOL/L (21-32) Anion Gap 9 mmol/L (5-15) Blood Urea Nitrogen 4 mg/dL (7-18) L Creatinine 0.9 MG/DL (0.55-1.30) Estimat Glomerular Filtration Rate > 60 mL/min (>60) Glucose Level 65 MG/DL (74-106) L Calcium Level 9.3 MG/DL (8.5-10.1) Iron Level 72 ug/dL (50-175) Total Iron Binding Capacity 317 ug/dL (250-450) Percent Iron Saturation 23 % (15-50) Unsaturated Iron Binding 245 ug/dL (112-346) Ferritin 87 NG/ML (8-388) Total Bilirubin 3.6 MG/DL (0.2-1.0) H Direct Bilirubin 3.0 MG/DL (0.0-0.3) H Aspartate Amino Transf (AST/SGOT) 353 U/L (15-37) H Alanine Aminotransferase (ALT/SGPT) 797 U/L (12-78) H Alkaline Phosphatase 414 U/L (46-116) H Total Protein 8.0 G/DL (6.4-8.2) Albumin 3.1 G/DL (3.4-5.0) L Globulin 4.9 g/dL Albumin/Globulin Ratio 0.6 (1.0-2.7) L Carcinoembryonic Antigen Pending Vitamin B12 Level 1250 PG/ML (193-986) H Folate 30.7 NG/ML (8.6-58.9) Thyroid Stimulating Hormone (TSH) 0.850 uiU/mL (0.358-3.740) Free Thyroxine 1.28 NG/DL (0.76-1.46) Height (Feet): 5 Height (Inches): 5.00 Weight (Pounds): 198 Medications Current Medications Medications (Trade) Dose Ordered Sig/Joselin Route PRN Reason Start Time Stop Time Status Last Admin Dose Admin Acetaminophen (Tylenol) 650 mg Q4H PRN ORAL Mild Pain/Temp > 100.5 06/14/18 00:30 07/14/18 00:29 Ceftriaxone Sodium 1 gm/ Sodium Chloride 55 ml @ 110 mls/hr DAILY IVPB 06/14/18 09:00 06/21/18 08:59 06/15/18 09:45 Dextrose/ Electrolytes 1,000 ml @ 75 mls/hr [id number] IV 06/14/18 12:00 07/14/18 11:59 06/15/18 00:45 Hydromorphone HCl (Dilaudid) 2 mg Q4H PRN IVP For Pain 06/14/18 14:30 06/21/18 14:29 06/15/18 14:22 Assessment/Plan Problem List: (1) Choledocholithiasis Assessment & Plan: MRI w/ 9 mm demonstrate common bile duct stone. Resultant extrahepatic and central intrahepatic biliary ductal dilatation Cholelithiasis. Possible gallbladder neck stone. Mild gallbladder wall edema could indicate only acute cholecystitis. Consider nuclear medicine hepatobiliary scan for better characterization 5 cm right ovarian cyst, presumably benign. No further follow-up necessary ICD Codes: K80.50 - Calculus of bile duct without cholangitis or cholecystitis without obstruction SNOMED: 526257006 (2) Cholecystitis Assessment & Plan: Cholelithiasis. Although there is no gallbladder wall thickening, positive sonographic Parkinson's sign raises concern for acute cholecystitis Mildly ectatic common bile duct. Correlate with liver function tests Slightly increased hepatic echogenicity, could indicate hepatocellular disease such as fatty change ICD Codes: K81.9 - Cholecystitis, unspecified SNOMED: 75398255 Assessment/Plan Given above findings long discussion had with patient about medical condition and care options. discussed surgery vs elective surgery. patient states still having pain, does not want another episode and strongly desires to have surgery prior to discharge as she does not feel safe. plan for lap vs open danny consent obtained npo p mn iv fluids iv abx John Kaufman Jun 15, 2018 15:55
--- NOTE | 2018-06-15 15:55 | Pre-Procedure Note/Attestation ---
Pre-Procedure Note/Attestation Complete Prior to Procedure Procedure Narrative: lap vs open cholecystectomy Indications for Procedure Pre-Operative Diagnosis: acute cholecystitis; choledocholithiasis Attestation I attest that I discussed the nature of the procedure; its benefits; risks and complications; and alternatives (and the risks and benefits of such alternatives ), prior to the procedure, with the patient (or the patient's legal customer relations representative). I attest that, if there was a reasonable possibility of needing a blood transfusion, the patient (or the patient's legal customer relations representative) was given the [facility] standardized written summary, pursuant to the Melvin Alyssia Blood Safety Act ([place] Health and Safety Code # 1645, as amended). I attest that I re-evaluated the patient just prior to the surgery and that there has been no change in the patient's H&P, except as documented below: John Kaufman Jun 15, 2018 15:55
--- NOTE | 2018-06-15 16:06 | NUR ---
CASE MANAGEMENT:REVIEW 06/15/18 SI: CHOLEDOCHOLITHIASIS. CHOLECYSTITIS 98.8 93 18 114/67 99% ON RA TBILI+3.6 DBILI+3.0 AST/ALT+353/797 IS: IVF@75/HR IV ROCEPHIN Q24 IV DILAUDID Q4HRS PRN : MED/SURG STATUS 3 EAST PLAN: NPO AFTER MIDNIGHT CONSENT FOR LAP ROSALINE vs OPEN ROSALINE
--- NOTE | 2018-06-15 17:45 | NUR ---
NURSE NOTES: c/o nausea and light headed ness. v/s taken.rt armleft arm 142/105, p 73. bp 143/ 104 p 78 sat 93%. l DR SOTOMAYOR NOTIFIED WITH ORDER.
--- NOTE | 2018-06-15 19:00 | NUR ---
NURSE NOTES: RESTING . IN NO ACUTE DISTRESS
--- NOTE | 2018-06-15 19:21 | NUR ---
HAND-OFF: Report given to Parish KHAN RN.
--- NOTE | 2018-06-15 19:45 | NUR ---
NURSE NOTES: Received report from PAMELA Palomino. Received pt sitting in bed, AOX4, pain level 10/10 to abdomen. Informed pt that next Dilaudid is not due till 2151. Pt verbalized understanding. No distress noted. IV L AC patent and intact. IV fluid infusing as ordered. Safety measures maintained. Bed in lowest position and locked, side rails up x 2, call light within reach. Will continue to monitor.
[2018-06-16] VITALS (15 sets, daily range): BP systolic 121–150; BP diastolic 68–95
--- NOTE | 2018-06-16 07:04 | NUR ---
HAND-OFF: Report given to PAMELA Oliver. Pt in stable condition.
--- NOTE | 2018-06-16 07:04 | NUR ---
NURSE NOTES:walking rounds done with outgoing rn(dandy).patient sitting at the side of the bed,a/ox4,room air,iv site on left ac patent,pain controlled at this time.npo for surgery at 2pm.patient aware,will continue plan of care.
[2018-06-16 07:31] LABS: BASOPHILS % (AUTO) 2.1 % (0.0-2.0); EOSINOPHILS % (AUTO) 1.7 % (0.0-3.0); HEMATOCRIT 36.7 % (37.0-47.0); HEMOGLOBIN 11.4 G/DL (12.0-16.0); LYMPHOCYTES % (AUTO) 14.6 % (20.0-45.0); MEAN CORPUSCULAR VOLUME 75 FL (80-99); MONOCYTES % (AUTO) 4.9 % (1.0-10.0); NEUTROPHILS % (AUTO) 76.7 % (45.0-75.0); PLATELET COUNT 353 K/UL (150-450); RED BLOOD COUNT 4.89 M/UL (4.20-5.40); RED CELL DISTRIBUTION WIDTH 17.9 % (11.6-14.8); WHITE BLOOD COUNT 6.6 K/UL (4.8-10.8)
[2018-06-16 08:00] LABS: ALANINE AMINOTRANSFERASE 733 U/L (12-78); ALBUMIN 2.9 G/DL (3.4-5.0); ALBUMIN/GLOBULIN RATIO 0.6 (1.0-2.7); ALKALINE PHOSPHATASE 394 U/L (46-116); ANION GAP 7 mmol/L (5-15); ASPARTATE AMINO TRANSFERASE 362 U/L (15-37); BILIRUBIN,DIRECT 0.7 MG/DL (0.0-0.3); BILIRUBIN,TOTAL 1.1 MG/DL (0.2-1.0); BLOOD UREA NITROGEN 4 mg/dL (7-18); CALCIUM 8.9 MG/DL (8.5-10.1); CARBON DIOXIDE 29 MMOL/L (21-32); CHLORIDE 103 MMOL/L (98-107); CREATININE 0.8 MG/DL (0.55-1.30); POTASSIUM 3.4 MMOL/L (3.5-5.1); SODIUM 139 MMOL/L (136-145)
[2018-06-16] MEDS: cefTRIAXone 1 GM in NS 55 ML IVPB SCH (08:46)
--- NOTE | 2018-06-16 09:39 | Pulmonology Progress Note ---
Assessment/Plan Assessment/Plan IMPRESSION: Obstructive jaundice with transaminitis. DISCUSSION: Will need cholecystectomy Continue IV fluids pain control Subjective Interval Events: For surgery today Constitutional: Reports: no symptoms HEENT: Repors: no symptoms Respiratory: Reports: no symptoms Cardiovascular: Reports: no symptoms Gastrointestinal/Abdominal: Reports: no symptoms Genitourinary: Reports: no symptoms Allergies: Coded Allergies: No Known Allergies (Unverified , 06/13/18) Objective Last 24 Hour Vital Signs Date Time Temp Pulse Resp B/P (MAP) Pulse Ox O2 Delivery O2 Flow Rate FiO2 06/16/18 08:00 98.6 70 18 134/78 (96) 93 06/16/18 07:11 Room Air 06/16/18 05:41 98.6 95 18 134/86 (102) 95 06/16/18 00:00 99.4 83 18 121/93 (102) 95 06/15/18 21:00 Room Air 06/15/18 20:00 98.3 77 18 119/75 (90) 96 06/15/18 18:22 98.6 06/15/18 16:00 98.6 67 18 134/83 (100) 99 06/15/18 14:52 98.8 06/15/18 13:25 93 18 99 06/15/18 12:00 98.8 93 18 114/67 (83) 99 Intake and Output 06/15/18 06/16/18 19:00 07:00 Intake Total 2090 ml 915 ml Output Total 670 ml Balance 1420 ml 915 ml Intake Oral 760 ml 240 ml IV Total 1330 ml 675 ml Output Urine Total 300 ml Estimated Blood Loss 0 ml Other 370 ml # Voids 1 3 General Appearance: no acute distress HEENT: normocephalic Respiratory/Chest: chest wall non-tender, lungs clear Cardiovascular: normal peripheral pulses, normal rate Abdomen: normal bowel sounds Laboratory Tests 06/16/18 06:35: White Blood Count 6.6, Red Blood Count 4.89, Hemoglobin 11.4L, Hematocrit 36.7L , Mean Corpuscular Volume 75L, Mean Corpuscular Hemoglobin 23.3L, Mean Corpuscular Hemoglobin Concent 31.1L, Red Cell Distribution Width 17.9H, Platelet Count 353, Mean Platelet Volume 5.9L, Neutrophils (%) (Auto) 76.7H, Lymphocytes (%) (Auto) 14.6L, Monocytes (%) (Auto) 4.9, Eosinophils (%) (Auto) 1.7, Basophils (%) (Auto) 2.1H, Sodium Level 139, Potassium Level 3.4L, Chloride Level 103, Carbon Dioxide Level 29, Anion Gap 7, Blood Urea Nitrogen 4L , Creatinine 0.8, Estimat Glomerular Filtration Rate > 60, Glucose Level 98, Calcium Level 8.9, Total Bilirubin 1.1H, Direct Bilirubin 0.7H, Aspartate Amino Transf (AST/SGOT) 362H, Alanine Aminotransferase (ALT/SGPT) 733H, Alkaline Phosphatase 394H, Total Protein 7.6, Albumin 2.9L, Globulin 4.7, Albumin/ Globulin Ratio 0.6L Current Medications Medications (Trade) Dose Ordered Sig/Joslein Route PRN Reason Start Time Stop Time Status Last Admin Dose Admin Acetaminophen (Tylenol) 650 mg Q4H PRN ORAL Mild Pain/Temp > 100.5 06/14/18 00:30 07/14/18 00:29 Ceftriaxone Sodium 1 gm/ Sodium Chloride 55 ml @ 110 mls/hr DAILY IVPB 06/14/18 09:00 06/21/18 08:59 06/16/18 08:46 Dextrose/ Electrolytes 1,000 ml @ 75 mls/hr [id number] IV 06/14/18 12:00 07/14/18 11:59 06/15/18 22:15 Hydromorphone HCl (Dilaudid) 2 mg Q4H PRN IVP For Pain 06/14/18 14:30 06/21/18 14:29 06/16/18 05:17 Ondansetron HCl (Zofran) 4 mg Q6H PRN IVP Nausea & Vomiting 06/15/18 17:45 07/15/18 17:44 06/15/18 17:51 Brain Mcfadden MD Jun 16, 2018 09:39
--- NOTE | 2018-06-16 11:06 | GI Progress Note ---
Assessment/Plan Problems: (1) Cholecystitis ICD Codes: K81.9 - Cholecystitis, unspecified SNOMED: 00047426 (2) Choledocholithiasis ICD Codes: K80.50 - Calculus of bile duct without cholangitis or cholecystitis without obstruction SNOMED: 341733846 (3) Cholelithiasis ICD Codes: K80.20 - Calculus of gallbladder without cholecystitis without obstruction SNOMED: 764097311 Status: unchanged Status Narrative Discussed with Dr. Lin. Assessment/Plan SUMMARY OF FINDINGS: 1. Choledocholithiasis. 2. Status post ERCP, sphincterotomy stone removal. RECOMMENDATIONS: The patient to be seen by a surgeon for possible inpatient cholecystectomy. Follow-up surgical recommendations Pain management Follow labs The patient was seen and examined at bedside and all new and available data was reviewed in the patients chart. I agree with the above findings, impression and plan. (Patient seen earlier today. Signature stamp does not reflect patient encounter time.). - Bradley Lin MD Subjective Gastrointestinal/Abdominal: Reports: abdominal pain Objective Last 24 Hour Vital Signs Date Time Temp Pulse Resp B/P (MAP) Pulse Ox O2 Delivery O2 Flow Rate FiO2 06/16/18 08:00 98.6 70 18 134/78 (96) 93 06/16/18 07:11 Room Air 06/16/18 05:41 98.6 95 18 134/86 (102) 95 06/16/18 00:00 99.4 83 18 121/93 (102) 95 06/15/18 21:00 Room Air 06/15/18 20:00 98.3 77 18 119/75 (90) 96 06/15/18 18:22 98.6 06/15/18 16:00 98.6 67 18 134/83 (100) 99 06/15/18 14:52 98.8 06/15/18 13:25 93 18 99 06/15/18 12:00 98.8 93 18 114/67 (83) 99 Intake and Output 06/15/18 06/16/18 19:00 07:00 Intake Total 2090 ml 915 ml Output Total 670 ml Balance 1420 ml 915 ml Intake Oral 760 ml 240 ml IV Total 1330 ml 675 ml Output Urine Total 300 ml Estimated Blood Loss 0 ml Other 370 ml # Voids 1 3 Laboratory Tests Test 06/16/18 06:35 White Blood Count 6.6 K/UL (4.8-10.8) Red Blood Count 4.89 M/UL (4.20-5.40) Hemoglobin 11.4 G/DL (12.0-16.0) L Hematocrit 36.7 % (37.0-47.0) L Mean Corpuscular Volume 75 FL (80-99) L Mean Corpuscular Hemoglobin 23.3 PG (27.0-31.0) L Mean Corpuscular Hemoglobin Concent 31.1 G/DL (32.0-36.0) L Red Cell Distribution Width 17.9 % (11.6-14.8) H Platelet Count 353 K/UL (150-450) Mean Platelet Volume 5.9 FL (6.5-10.1) L Neutrophils (%) (Auto) 76.7 % (45.0-75.0) H Lymphocytes (%) (Auto) 14.6 % (20.0-45.0) L Monocytes (%) (Auto) 4.9 % (1.0-10.0) Eosinophils (%) (Auto) 1.7 % (0.0-3.0) Basophils (%) (Auto) 2.1 % (0.0-2.0) H Sodium Level 139 MMOL/L (136-145) Potassium Level 3.4 MMOL/L (3.5-5.1) L Chloride Level 103 MMOL/L (98-107) Carbon Dioxide Level 29 MMOL/L (21-32) Anion Gap 7 mmol/L (5-15) Blood Urea Nitrogen 4 mg/dL (7-18) L Creatinine 0.8 MG/DL (0.55-1.30) Estimat Glomerular Filtration Rate > 60 mL/min (>60) Glucose Level 98 MG/DL (74-106) Calcium Level 8.9 MG/DL (8.5-10.1) Total Bilirubin 1.1 MG/DL (0.2-1.0) H Direct Bilirubin 0.7 MG/DL (0.0-0.3) H Aspartate Amino Transf (AST/SGOT) 362 U/L (15-37) H Alanine Aminotransferase (ALT/SGPT) 733 U/L (12-78) H Alkaline Phosphatase 394 U/L (46-116) H Total Protein 7.6 G/DL (6.4-8.2) Albumin 2.9 G/DL (3.4-5.0) L Globulin 4.7 g/dL Albumin/Globulin Ratio 0.6 (1.0-2.7) L Height (Feet): 5 Height (Inches): 5.00 Weight (Pounds): 198 General Appearance: WD/WN, no apparent distress, alert, obese Cardiovascular: normal rate Respiratory/Chest: normal breath sounds, no respiratory distress Abdominal Exam: normal bowel sounds, non tender, soft Extremities: normal range of motion, non-tender Mauro Zimmer NP Jun 16, 2018 11:06
[2018-06-16] MEDS ORDERED: Bupivacaine w/Epi 0.5% 30ml Vial INJ ONE (11:31)
--- NOTE | 2018-06-16 11:33 | Anethesia Preoperative Eval ---
Anesthesia Pre-op PMH/ROS General Date of Evaluation: Jun 16, 2018 Time of Evaluation: 11:28 Anesthesiologist: Jon ASA Score: ASA 2 Mallampati Score Class I : Soft palate, uvula, fauces, pillars visible Class II: Soft palate, uvula, fauces visible Class III: Soft palate, base of uvula visible Class IV: Only hard plate visible Mallampati Classification: Class II Surgeon: Rosa Diagnosis: Symptomatic cholelithiasis Surgical Procedure: Lap. cholecystectomy Anesthesia History: none Family History: no anesthesia problems Allergies: Coded Allergies: No Known Allergies (Unverified , 06/13/18) Medications: see eMAR Patient NPO?: Yes NPO Date: Jun 16, 2018 NPO Time: 0000 Past Medical History Cardiovascular: Denies: HTN, CAD, [place], valve dz, arrhythmia, other Pulmonary: Denies: asthma, COPD, WILLA, other Gastrointestinal/Genitourinary: Reports: GERD; Denies: CRI, ESRD, other Neurologic/Psychiatric: Denies: dementia, CVA, depression/anxiety, TIA, other Endocrine: Reports: hypothyroidism; Denies: DM, steroids, other HEENT: Denies: cataract (L), cataract (R), glaucoma, GULKANA (L), GULKANA (R), other Hematology/Immune: Denies: anemia, DVT, bleeding disorder, other Musculoskeletal/Integumentary: Denies: OA, RA, DJD, DDD, edema, other Other: obesity PMH Narrative: as above, admitted for acute abdominal pain, diagnosed with gallbladder stones, ERCP done CBD stone removed scheduled for cholecystectomy PSxH Narrative: see chart Anesthesia Pre-op Phys. Exam Physician Exam Last Vital Signs Date Time Temp Pulse Resp B/P (MAP) Pulse Ox O2 Delivery O2 Flow Rate FiO2 06/16/18 08:00 98.6 70 18 134/78 (96) 93 06/16/18 07:11 Room Air 06/15/18 09:00 3 Constitutional: NAD Neurologic: CN 2-12 intact Cardiovascular: RRR, no M/R/G Respiratory: CTA Gastrointestinal: other - some tenderness on palpation Airway Exam Mallampati Score: Class II MO: full Neck: flexible ROM: full Teeth: intact Dentures: no upper, no lower Anesthesia Pre-op A/P Labs Hematology Test 06/16/18 06:35 White Blood Count 6.6 K/UL (4.8-10.8) Red Blood Count 4.89 M/UL (4.20-5.40) Hemoglobin 11.4 G/DL (12.0-16.0) L Hematocrit 36.7 % (37.0-47.0) L Mean Corpuscular Volume 75 FL (80-99) L Mean Corpuscular Hemoglobin 23.3 PG (27.0-31.0) L Mean Corpuscular Hemoglobin Concent 31.1 G/DL (32.0-36.0) L Red Cell Distribution Width 17.9 % (11.6-14.8) H Platelet Count 353 K/UL (150-450) Mean Platelet Volume 5.9 FL (6.5-10.1) L Neutrophils (%) (Auto) 76.7 % (45.0-75.0) H Lymphocytes (%) (Auto) 14.6 % (20.0-45.0) L Monocytes (%) (Auto) 4.9 % (1.0-10.0) Eosinophils (%) (Auto) 1.7 % (0.0-3.0) Basophils (%) (Auto) 2.1 % (0.0-2.0) H Chemistry Test 06/16/18 06:35 Sodium Level 139 MMOL/L (136-145) Potassium Level 3.4 MMOL/L (3.5-5.1) L Chloride Level 103 MMOL/L (98-107) Carbon Dioxide Level 29 MMOL/L (21-32) Anion Gap 7 mmol/L (5-15) Blood Urea Nitrogen 4 mg/dL (7-18) L Creatinine 0.8 MG/DL (0.55-1.30) Estimat Glomerular Filtration Rate > 60 mL/min (>60) Glucose Level 98 MG/DL (74-106) Calcium Level 8.9 MG/DL (8.5-10.1) Total Bilirubin 1.1 MG/DL (0.2-1.0) H Direct Bilirubin 0.7 MG/DL (0.0-0.3) H Aspartate Amino Transf (AST/SGOT) 362 U/L (15-37) H Alanine Aminotransferase (ALT/SGPT) 733 U/L (12-78) H Alkaline Phosphatase 394 U/L (46-116) H Total Protein 7.6 G/DL (6.4-8.2) Albumin 2.9 G/DL (3.4-5.0) L Globulin 4.7 g/dL Albumin/Globulin Ratio 0.6 (1.0-2.7) L Risk Assessment & Plan Assessment: GA with ETT PONV prevention Plan: ASA 2 Status Change Before Surgery: No Pre-Antibiotics Drug: Ancef 2gr. Given Within 1 Hr of Incision: Yes Ronnie Webb MD Jun 16, 2018 11:33
--- NOTE | 2018-06-16 13:30 | NUR ---
NURSE NOTES:bedside handoff done with melissa ball:patient to surgery by bed.stable on pickup,with iv site patent.
[2018-06-16] MEDS ORDERED: Succinylcholine 20mg/ml 10ml vial ONE (13:47)
[2018-06-16] MEDS ORDERED: Zemuron 50mg/5ml Inj IV ONE (13:47)
[2018-06-16] MEDS ORDERED: NS Irrig 1000ml IRRIG ONE (13:50)
[2018-06-16] MEDS ORDERED: NS Irrig 1000ml ONE (14:00)
[2018-06-16] MEDS ORDERED: Sterile Water Irrig 1000ml IRRIG ONE (14:00)
[2018-06-16] MEDS ORDERED: Neostigmine 1mg/ml 10ml Inj ONE (14:00)
[2018-06-16] MEDS ORDERED: LR 1000ml ONE (14:00)
[2018-06-16] MEDS ORDERED: fentaNYL 100 mcg/2 mL IV ONE (14:02)
[2018-06-16] MEDS ORDERED: Midazolam 2mg/2ml Inj ONE (14:02)
[2018-06-16] MEDS ORDERED: Propofol 200mg/20ml IV ONE (14:05)
[2018-06-16] MEDS ORDERED: Lidocaine 1% MPF 10mg/ml 5ml ONE (14:05)
--- NOTE | 2018-06-16 14:36 | NUR ---
CASE MANAGEMENT:REVIEW 06/16/17 SI: CHOLEDOCHOLITHIASIS. CHOLECYSTITIS 98.5 61 18 135/74 96% ON RA K-3.4 IS: TO SURGERY FOR CHOLECYSTECTOMY IVF@75/HR IV ROCEPHIN QD : MED/SURG STATUS 3 [facility]
[2018-06-16] MEDS ORDERED: Morphine Sulfate 10mg/ml Inj ONE (14:51)
[2018-06-16] MEDS ORDERED: Sodium Chloride 10ml vial INJ ONE (14:52)
[2018-06-16] MEDS ORDERED: Glycopyrrolate 0.2mg/ml 1ml Vial ONE (14:52)
[2018-06-16] MEDS ORDERED: Ketorolac 30mg Inj ONE (14:52)
[2018-06-16] MEDS ORDERED: LR 1000ml 1,000 ML IVLG SCH (14:57)
[2018-06-16] MEDS ORDERED: Ketorolac 30mg Inj IV PRN ×2 (15:00→16:15)
[2018-06-16] MEDS ORDERED: Hydromorphone 0.5mg/0.5ml inj IVP PRN ×2 (15:00→16:15)
[2018-06-16] MEDS ORDERED: Meperidine 50mg/ml Inj(FOR RIGORS ONLY) IV PRN (15:00)
[2018-06-16] MEDS ORDERED: Midazolam 2mg/2ml Inj IVP PRN (15:00)
[2018-06-16] MEDS ORDERED: DiphenhydrAMINE 50mg/ml Inj IVP PRN (15:00)
[2018-06-16] MEDS ORDERED: Metoclopramide 10mg/2ml Inj IVP PRN (15:00)
[2018-06-16] MEDS ORDERED: Surgicel 4in x 8in TOPIC ONE (15:42)
--- NOTE | 2018-06-16 16:01 | Brief Operative Note ---
Immediate Post Operative Note Operative Note Pre-op Diagnosis: acute cholecystitis; choledocholithiasis Procedure: lap danny Post-op Diagnosis: same as pre-op Surgeon: daniel Anesthesiologist: gina Anesthesia: general Specimen: yes Complications: none Condition: stable Fluids: see records Estimated Blood Loss: minimal Drains: none Implant(s) used?: No John Kaufman Jun 16, 2018 16:01
--- NOTE | 2018-06-16 16:10 | Immediate Post-Op Evaluation ---
Immediate Post-Op Evalulation Immediate Post-Op Evalulation Procedure: Laparoscopic cholecystectomy Date of Evaluation: Jun 16, 2018 Time of Evaluation: 16:09 IV Fluids: 800 Blood Products: none Estimated Blood Loss: min Urinary Output: none Blood Pressure Systolic: 134 Blood Pressure Diastolic: 75 Pulse Rate: 78 Respiratory Rate: 20 O2 Sat by Pulse Oximetry: 99 Temperature (Fahrenheit): 97.6 Pain Score (1-10): 2 Nausea: No Vomiting: No Complications none Patient Status: reacts, patent, extubated, none Hydration Status: adequate Ronnie Webb MD Jun 16, 2018 16:10
[2018-06-16] MEDS ORDERED: HYDROmorphone 1mg/ml Carpuject IVP PRN (16:15)
[2018-06-16] MEDS ORDERED: Norco 5mg/325mg tab ORAL PRN (16:15)
--- NOTE | 2018-06-16 17:25 | NUR ---
NURSE NOTES:RECEIVED PATIENT FR.PACU BY BED,REPORT GIVEN BY WAN SANTIAGO,PATIENT ASLEEP BUT AROUSABLE,MOVING ALL EXTREMITIES,WITH O2 AT 2 LTERS N/C.4 LAPSITES IN ABDOMEN CEAN,DRY,INTACT.ICE PACK ON.NO C/O PAIN.WILL START ON CLEAR LIQUID DIET.
--- NOTE | 2018-06-16 18:55 | 48 Hour Post Anesthesia Eval ---
Post Anesthesia Evaluation Procedure: Laparoscopic cholecystectomy Date of Evaluation: Jun 16, 2018 Time of Evaluation: 18:54 Blood Pressure Systolic: 134 0: 72 Pulse Rate: 65 Respiratory Rate: 14 Temperature (Fahrenheit): 98.5 O2 Sat by Pulse Oximetry: 100 Airway: patent Nausea: No Vomiting: No Pain Intensity: 3 Hydration Status: adequate Cardiopulmonary Status: Stable Mental Status/LOC: patient returned to baseline Follow-up Care/Observations: 0 Post-Anesthesia Complications: 0 Follow-up care needed: N/A Pietro Bhatt MD Jun 16, 2018 18:55
--- NOTE | 2018-06-16 18:57 | NUR ---
NURSE NOTES:tolerated 100% for clear liquid diet,medicated for pain8/10 with dilaudid 2mg iv.
--- NOTE | 2018-06-16 19:10 | NUR ---
HAND-OFF: Report given to LEANDER SANTIAGO,PATIENT STABLE.
--- NOTE | 2018-06-16 20:30 | NUR ---
NURSE NOTES: Patient alert and oriented. Heplock leaking, discontinued; dressing applied. IV heplock restarted by PAMELA Pearson on left wrist, gauge #22, patent and intact. Patient voided 200 cc without difficulty. No stool, aware of OB stool test. Denies pain. Bed in lowest position, locked, side rails up x2. Call light within reach. Will continue to monitor.
--- NOTE | 2018-06-16 20:30 | Operative Note - Dictated ---
DATE OF OPERATION: 06/16/2018 PREOPERATIVE DIAGNOSES: 1. Acute cholecystitis. 2. Choledocholithiasis. POSTOPERATIVE DIAGNOSES: 1. Acute cholecystitis. 2. Choledocholithiasis. OPERATION PERFORMED: Laparoscopic cholecystectomy. ATTENDING SURGEON: John Kaufman M.D. TIGHTENING MACHINE OPERATOR: None. ANESTHESIOLOGIST: Ronnie Webb M.D. ANESTHESIA: General PRODUCTION OPERATOR. ESTIMATED BLOOD LOSS: Minimal. IV FLUIDS: Please see anesthesia records. COMPLICATIONS: None. DRAINS: None. SPECIMENS: Gallbladder and contained stones. WOUND CLASSIFICATION: Class III. ANTIBIOTICS: The patient is on scheduled IV antibiotics. INDICATIONS FOR PROCEDURE: This 27-year-old female presented to [facility] with worsening abdominal pain and demonstrated positive Parkinson sign and labs consistent with potential common bile duct obstruction. MRCP performed identifying choledocholithiasis at which time prompting Gastroenterology to perform an ERCP and stone extraction. Postprocedure, the patient presented to have right upper quadrant pain consistent with acute cholecystitis and therefore given the above finding, surgery was indicated and recommended. Risks, benefits, and alternatives was discussed with the patient in detail, who expressed understanding and consented to surgery. OPERATIVE NOTE: The patient was taken to the operating room and placed on the operating table in supine position with bilateral arms out. All bony prominences were well padded. SCDs placed. Preoperative time-out taken identifying the patient, procedure, operating staff, and surgical staff. General anesthesia was induced and the patient was intubated. Abdomen was clipped, prepped, and draped in standard surgical fashion. An infraumbilical incision was made using a fresh #11 scalpel and carried down to the fascia, which was elevated and incised. Entry into the abdomen was obtained using open Olayinka technique without complication. A 12 mm Olayinka trocar was inserted and the abdomen was insufflated 12 to 15 mmHg. The patient tolerated the insufflation well. Laparoscope was inserted and abdomen was inspected. No injury from initial trocar placement noted. Secondary trocars were placed under direct visualization beginning with a 12 mm right subxiphoid followed by two 5 mm right subcostal port sites. No injury from secondary trocar placement noted. The patient was placed in reverse Trendelenburg with the left side down. Gallbladder dome was grasped and retracted over the liver. The infundibulum was grasped and retracted towards right lower quadrant. Following this, gentle dissection was performed until the cystic artery and cystic duct were identified. The cystic duct of note was significantly enlarged and short consistent with being able to potentially pass large stones. The cystic artery was doubly clipped and divided. Only remaining structure was a large cystic duct entering the gallbladder at the infundibulum, which was short in nature. Given the length and the size, decision was made the clip may not be sufficient. Therefore, the gallbladder was removed completely from its liver attachments prior to being divided. Electrocautery was used and the gallbladder was removed and was dissected away from the liver bed until completely mobilized. Once this was complete, 0 PDS Endoloop was used and the cystic duct was ligated. Following this, the cystic duct was cut and the gallbladder and contained stones were put in endoscopic retrieval bag and removed from the abdomen using the umbilical port site. The clips on the cystic artery and the Endoloop on the cystic duct were satisfactory and intact. At this time, abdomen was irrigated and suctioned until clear and once this was performed and abdomen was inspected, good hemostasis noted. There were no biliary leak from cystic duct stump or bleeding from the cystic duct, cystic artery stumps noted. A Surgicel was placed in the liver bed. At this time, we began to close our procedure. Secondary trocars were removed under direct visualization followed by the umbilical trocar site. The umbilical trocar site and right subxiphoid trocar site fascia were closed using #0 [id number] Vicryl suture. The remaining skin incisions were approximated using 4-0 Monocryl subcuticular interrupted suture. Benzoin, Steri-Strips and dressings were applied. The patient tolerated the procedure well, was extubated and taken to postanesthetic care unit in stable condition. John Kaufman M.D. DR: HAILEY JOB#: [id number] CC:
[2018-06-17] VITALS: BP 133/89
--- NOTE | 2018-06-17 01:42 | NUR ---
NURSE NOTES: Made rounds, patient asleep, no distress noted.
[2018-06-17 04:00] VITALS: BP 148/90
--- NOTE | 2018-06-17 07:10 | NUR ---
NURSE NOTES:RECEIVED REPORT FR.JOSE BILL SANTIAGO,ROUNDS DONE,PATIENT AWAKE A/OX4,ROOM AIR,LAP SITES CLEAN/DRY/INTACT.HEPLOCK INTACK ON LEFT WRIST,NO C/O PAIN,COMFORTABLE.TO START ON REGULAR DIET, MADE AWARE WELL PLAN OF CARE.
--- NOTE | 2018-06-17 07:15 | NUR ---
HAND-OFF: Report given to PAMELA Oliver. Patient in stable condition.
[2018-06-17 07:30] LABS: BASOPHILS % (AUTO) 1.8 % (0.0-2.0); HEMATOCRIT 34.9 % (37.0-47.0); LYMPHOCYTES % (AUTO) 24.9 % (20.0-45.0); MEAN CORPUSCULAR VOLUME 74 FL (80-99); NEUTROPHILS % (AUTO) 64.3 % (45.0-75.0); PLATELET COUNT 338 K/UL (150-450); RED BLOOD COUNT 4.71 M/UL (4.20-5.40); RED CELL DISTRIBUTION WIDTH 18.1 % (11.6-14.8); WHITE BLOOD COUNT 5.9 K/UL (4.8-10.8)
[2018-06-17 07:39] LABS: ALANINE AMINOTRANSFERASE 566 U/L (12-78); ALBUMIN 2.7 G/DL (3.4-5.0); ALBUMIN/GLOBULIN RATIO 0.6 (1.0-2.7); ALKALINE PHOSPHATASE 327 U/L (46-116); AMYLASE 151 U/L (25-115); ANION GAP 7 mmol/L (5-15); ASPARTATE AMINO TRANSFERASE 217 U/L (15-37); BILIRUBIN,TOTAL 0.8 MG/DL (0.2-1.0); BLOOD UREA NITROGEN 4 mg/dL (7-18); CALCIUM 8.7 MG/DL (8.5-10.1); CARBON DIOXIDE 28 MMOL/L (21-32); CHLORIDE 103 MMOL/L (98-107); CREATININE 0.6 MG/DL (0.55-1.30); POTASSIUM 3.6 MMOL/L (3.5-5.1); SODIUM 138 MMOL/L (136-145)
[2018-06-17 07:59] VITALS: BP 127/94
[2018-06-17] MEDS: cefTRIAXone 1 GM in NS 55 ML IVPB SCH (08:10)
--- NOTE | 2018-06-17 10:27 | NUR ---
CASE MANAGEMENT:REVIEW 06/17/18 SI: POD#1...S/P LAP ROSALINE CHOLEDOCHOLITHIASIS. CHOLECYSTITIS 97.4 73 19 127/94 96% ON RA H/H-11.0/34.9 AST/ALT+217/566 IS: IV ROCEPHIN Q24 IV DILAUDID Q4HRS PRN : MED/SURG STATUS 3 [place] PLAN: ADVANCE TO REGULAR DIET
--- NOTE | 2018-06-17 10:36 | Pulmonology Progress Note ---
Assessment/Plan Assessment/Plan IMPRESSION: Obstructive jaundice with transaminitis. DISCUSSION: status postcholecystectomy discharge home today Subjective Interval Events: doing much better postop 1; status post cholecystectomy Constitutional: Reports: no symptoms HEENT: Repors: no symptoms Respiratory: Reports: no symptoms Cardiovascular: Reports: no symptoms Gastrointestinal/Abdominal: Reports: no symptoms Genitourinary: Reports: no symptoms Neurologic: Reports: no symptoms Allergies: Coded Allergies: No Known Allergies (Unverified , 06/13/18) Objective Last 24 Hour Vital Signs Date Time Temp Pulse Resp B/P (MAP) Pulse Ox O2 Delivery O2 Flow Rate FiO2 06/17/18 07:59 97.4 73 19 127/94 (105) 96 06/17/18 07:29 Room Air 06/17/18 04:00 98.2 79 19 148/90 (109) 97 06/17/18 00:00 98.1 78 18 133/89 (104) 96 06/16/18 21:00 Room Air 06/16/18 21:00 Room Air 06/16/18 20:00 98.3 72 17 125/95 (105) 96 06/16/18 18:55 65 14 100 06/16/18 17:55 97.9 68 128/70 (89) 98 06/16/18 17:25 97.9 63 131/77 (95) 98 06/16/18 17:01 98.5 65 14 134/72 100 Nasal Cannula 3 06/16/18 16:54 98.5 06/16/18 16:50 67 15 132/78 100 Nasal Cannula 3 06/16/18 16:35 66 17 129/71 100 Nasal Cannula 3 06/16/18 16:25 73 15 150/83 100 Nasal Cannula 3 06/16/18 16:15 76 18 137/68 100 Nasal Cannula 3 06/16/18 16:10 75 17 130/78 100 Simple Mask 6 06/16/18 16:10 78 20 99 06/16/18 16:06 98.3 83 20 141/84 100 Simple Mask 6 06/16/18 12:07 98.5 61 18 135/74 (94) 96 Intake and Output 06/16/18 06/17/18 19:00 07:00 Intake Total 2230 ml 920 ml Output Total 15 ml 1900 ml Balance 2215 ml -980 ml Intake Oral 800 ml 920 ml IV Total 1430 ml Output Urine Total 1900 ml Estimated Blood Loss 15 ml # Voids 4 General Appearance: no acute distress HEENT: normocephalic Respiratory/Chest: chest wall non-tender, lungs clear Cardiovascular: normal peripheral pulses, normal rate Abdomen: normal bowel sounds, soft, non tender Laboratory Tests 06/17/18 06:34: White Blood Count 5.9, Red Blood Count 4.71, Hemoglobin 11.0L, Hematocrit 34.9L , Mean Corpuscular Volume 74L, Mean Corpuscular Hemoglobin 23.3L, Mean Corpuscular Hemoglobin Concent 31.4L, Red Cell Distribution Width 18.1H, Platelet Count 338, Mean Platelet Volume 5.8L, Neutrophils (%) (Auto) 64.3, Lymphocytes (%) (Auto) 24.9, Monocytes (%) (Auto) 6.0, Eosinophils (%) (Auto) 3.0, Basophils (%) (Auto) 1.8, Sodium Level 138, Potassium Level 3.6, Chloride Level 103, Carbon Dioxide Level 28, Anion Gap 7, Blood Urea Nitrogen 4L, Creatinine 0.6, Estimat Glomerular Filtration Rate > 60, Glucose Level 78, Calcium Level 8.7, Total Bilirubin 0.8, Aspartate Amino Transf (AST/SGOT) 217H, Alanine Aminotransferase (ALT/SGPT) 566H, Alkaline Phosphatase 327H, Total Protein 7.1, Albumin 2.7L, Globulin 4.4, Albumin/Globulin Ratio 0.6L, Amylase Level 151H, Lipase 384 Current Medications Medications (Trade) Dose Ordered Sig/Joselin Route PRN Reason Start Time Stop Time Status Last Admin Dose Admin Acetaminophen (Tylenol) 650 mg Q4H PRN ORAL Mild Pain/Temp > 100.5 06/14/18 00:30 07/14/18 00:29 Acetaminophen (Tylenol) 650 mg Q6H PRN ORAL Mild Pain (Pain Scale 1-3) 06/16/18 16:15 07/16/18 16:14 Acetaminophen/ Hydrocodone Bitart (Finley 10/325) 1 tab Q4H PRN ORAL Severe Pain (Pain Scale 7-10) 06/16/18 16:15 06/23/18 16:14 Acetaminophen/ Hydrocodone Bitart (Finley 5/325) 1 tab Q4H PRN ORAL Moderate Pain (Pain Scale 4-6) 06/16/18 16:15 06/23/18 16:14 Ceftriaxone Sodium 1 gm/ Sodium Chloride 55 ml @ 110 mls/hr DAILY IVPB 06/14/18 09:00 06/21/18 08:59 06/17/18 08:10 Hydromorphone HCl (Dilaudid) 0.5 mg Q3H PRN IVP Pain Score 1-3 06/16/18 16:15 06/23/18 16:14 Hydromorphone HCl (Dilaudid) 1 mg Q3H PRN IVP pain score 4-6 06/16/18 16:15 06/23/18 16:14 Hydromorphone HCl (Dilaudid) 2 mg Q3H PRN IVP pain score 7-10 06/16/18 16:15 06/23/18 16:14 Hydromorphone HCl (Dilaudid) 2 mg Q4H PRN IVP For Pain 06/14/18 14:30 06/21/18 14:29 06/17/18 08:10 Ketorolac Tromethamine (Toradol 30mg) 15 mg Q6H PRN IV For Pain 06/16/18 16:15 06/21/18 16:14 Ondansetron HCl (Zofran) 4 mg Q6H PRN IVP Nausea & Vomiting 06/15/18 17:45 07/15/18 17:44 06/15/18 17:51 Brain Mcfadden MD Jun 17, 2018 10:36
--- NOTE | 2018-06-17 11:20 | Surgery Progress Note ---
Surgery Progress Note Subjective Procedure Performed lap danny Symptoms: improved, tolerating diet, passing flatus Additional Comments incisional pain. no n/v/f/c. labs improved. doing well post op Objective Last 24 Hour Vital Signs Date Time Temp Pulse Resp B/P (MAP) Pulse Ox O2 Delivery O2 Flow Rate FiO2 06/17/18 07:59 97.4 73 19 127/94 (105) 96 06/17/18 07:29 Room Air 06/17/18 04:00 98.2 79 19 148/90 (109) 97 06/17/18 00:00 98.1 78 18 133/89 (104) 96 06/16/18 21:00 Room Air 06/16/18 21:00 Room Air 06/16/18 20:00 98.3 72 17 125/95 (105) 96 06/16/18 18:55 65 14 100 06/16/18 17:55 97.9 68 128/70 (89) 98 06/16/18 17:25 97.9 63 131/77 (95) 98 06/16/18 17:01 98.5 65 14 134/72 100 Nasal Cannula 3 06/16/18 16:54 98.5 06/16/18 16:50 67 15 132/78 100 Nasal Cannula 3 06/16/18 16:35 66 17 129/71 100 Nasal Cannula 3 06/16/18 16:25 73 15 150/83 100 Nasal Cannula 3 06/16/18 16:15 76 18 137/68 100 Nasal Cannula 3 06/16/18 16:10 75 17 130/78 100 Simple Mask 6 06/16/18 16:10 78 20 99 06/16/18 16:06 98.3 83 20 141/84 100 Simple Mask 6 06/16/18 12:07 98.5 61 18 135/74 (94) 96 I&O Intake and Output 06/16/18 06/17/18 19:00 07:00 Intake Total 2230 ml 920 ml Output Total 15 ml 1900 ml Balance 2215 ml -980 ml Intake Oral 800 ml 920 ml IV Total 1430 ml Output Urine Total 1900 ml Estimated Blood Loss 15 ml # Voids 4 Dressing: dry Wound: clean Drains: none Cardiovascular: RSR Respiratory: clear Abdomen: soft, flat, non-tender, present bowel sounds, non-distended Extremities: no cyanosis Laboratory Tests Test 06/17/18 06:34 White Blood Count 5.9 K/UL (4.8-10.8) Red Blood Count 4.71 M/UL (4.20-5.40) Hemoglobin 11.0 G/DL (12.0-16.0) L Hematocrit 34.9 % (37.0-47.0) L Mean Corpuscular Volume 74 FL (80-99) L Mean Corpuscular Hemoglobin 23.3 PG (27.0-31.0) L Mean Corpuscular Hemoglobin Concent 31.4 G/DL (32.0-36.0) L Red Cell Distribution Width 18.1 % (11.6-14.8) H Platelet Count 338 K/UL (150-450) Mean Platelet Volume 5.8 FL (6.5-10.1) L Neutrophils (%) (Auto) 64.3 % (45.0-75.0) Lymphocytes (%) (Auto) 24.9 % (20.0-45.0) Monocytes (%) (Auto) 6.0 % (1.0-10.0) Eosinophils (%) (Auto) 3.0 % (0.0-3.0) Basophils (%) (Auto) 1.8 % (0.0-2.0) Sodium Level 138 MMOL/L (136-145) Potassium Level 3.6 MMOL/L (3.5-5.1) Chloride Level 103 MMOL/L (98-107) Carbon Dioxide Level 28 MMOL/L (21-32) Anion Gap 7 mmol/L (5-15) Blood Urea Nitrogen 4 mg/dL (7-18) L Creatinine 0.6 MG/DL (0.55-1.30) Estimat Glomerular Filtration Rate > 60 mL/min (>60) Glucose Level 78 MG/DL (74-106) Calcium Level 8.7 MG/DL (8.5-10.1) Total Bilirubin 0.8 MG/DL (0.2-1.0) Aspartate Amino Transf (AST/SGOT) 217 U/L (15-37) H Alanine Aminotransferase (ALT/SGPT) 566 U/L (12-78) H Alkaline Phosphatase 327 U/L (46-116) H Total Protein 7.1 G/DL (6.4-8.2) Albumin 2.7 G/DL (3.4-5.0) L Globulin 4.4 g/dL Albumin/Globulin Ratio 0.6 (1.0-2.7) L Amylase Level 151 U/L (25-115) H Lipase 384 U/L (73-393) Plan Problems: (1) Choledocholithiasis Assessment & Plan: MRI w/ 9 mm demonstrate common bile duct stone. Resultant extrahepatic and central intrahepatic biliary ductal dilatation Cholelithiasis. Possible gallbladder neck stone. Mild gallbladder wall edema could indicate only acute cholecystitis. Consider nuclear medicine hepatobiliary scan for better characterization 5 cm right ovarian cyst, presumably benign. No further follow-up necessary (2) Cholecystitis Assessment & Plan: Cholelithiasis. Although there is no gallbladder wall thickening, positive sonographic Parkinson's sign raises concern for acute cholecystitis Mildly ectatic common bile duct. Correlate with liver function tests Slightly increased hepatic echogenicity, could indicate hepatocellular disease such as fatty change s/p lap danny doing well diet as tolerated activity IS d/c planning f/u in 2 weeks John Kaufman Jun 17, 2018 11:20
--- NOTE | 2018-06-17 11:23 | GI Progress Note ---
Assessment/Plan Problems: (1) Cholecystitis ICD Codes: K81.9 - Cholecystitis, unspecified SNOMED: 55528359 (2) Choledocholithiasis ICD Codes: K80.50 - Calculus of bile duct without cholangitis or cholecystitis without obstruction SNOMED: 216451518 (3) Cholelithiasis ICD Codes: K80.20 - Calculus of gallbladder without cholecystitis without obstruction SNOMED: 974633220 Status: stable Status Narrative Discussed with Dr. Lin Assessment/Plan SUMMARY OF FINDINGS: 1. Choledocholithiasis. 2. Status post ERCP, sphincterotomy stone removal. Status post cholecystectomy RECOMMENDATIONS: Follow-up surgical recommendations Pain management Zofran as needed PPI Follow labs The patient was seen and examined at bedside and all new and available data was reviewed in the patients chart. I agree with the above findings, impression and plan. (Patient seen earlier today. Signature stamp does not reflect patient encounter time.). - Bradley Lin MD Subjective Subjective Abdominal pain improving Objective Last 24 Hour Vital Signs Date Time Temp Pulse Resp B/P (MAP) Pulse Ox O2 Delivery O2 Flow Rate FiO2 06/17/18 07:59 97.4 73 19 127/94 (105) 96 06/17/18 07:29 Room Air 06/17/18 04:00 98.2 79 19 148/90 (109) 97 06/17/18 00:00 98.1 78 18 133/89 (104) 96 06/16/18 21:00 Room Air 06/16/18 21:00 Room Air 06/16/18 20:00 98.3 72 17 125/95 (105) 96 06/16/18 18:55 65 14 100 06/16/18 17:55 97.9 68 128/70 (89) 98 06/16/18 17:25 97.9 63 131/77 (95) 98 06/16/18 17:01 98.5 65 14 134/72 100 Nasal Cannula 3 06/16/18 16:54 98.5 06/16/18 16:50 67 15 132/78 100 Nasal Cannula 3 06/16/18 16:35 66 17 129/71 100 Nasal Cannula 3 06/16/18 16:25 73 15 150/83 100 Nasal Cannula 3 06/16/18 16:15 76 18 137/68 100 Nasal Cannula 3 06/16/18 16:10 75 17 130/78 100 Simple Mask 6 06/16/18 16:10 78 20 99 06/16/18 16:06 98.3 83 20 141/84 100 Simple Mask 6 06/16/18 12:07 98.5 61 18 135/74 (94) 96 Intake and Output 06/16/18 06/17/18 19:00 07:00 Intake Total 2230 ml 920 ml Output Total 15 ml 1900 ml Balance 2215 ml -980 ml Intake Oral 800 ml 920 ml IV Total 1430 ml Output Urine Total 1900 ml Estimated Blood Loss 15 ml # Voids 4 Laboratory Tests Test 06/17/18 06:34 White Blood Count 5.9 K/UL (4.8-10.8) Red Blood Count 4.71 M/UL (4.20-5.40) Hemoglobin 11.0 G/DL (12.0-16.0) L Hematocrit 34.9 % (37.0-47.0) L Mean Corpuscular Volume 74 FL (80-99) L Mean Corpuscular Hemoglobin 23.3 PG (27.0-31.0) L Mean Corpuscular Hemoglobin Concent 31.4 G/DL (32.0-36.0) L Red Cell Distribution Width 18.1 % (11.6-14.8) H Platelet Count 338 K/UL (150-450) Mean Platelet Volume 5.8 FL (6.5-10.1) L Neutrophils (%) (Auto) 64.3 % (45.0-75.0) Lymphocytes (%) (Auto) 24.9 % (20.0-45.0) Monocytes (%) (Auto) 6.0 % (1.0-10.0) Eosinophils (%) (Auto) 3.0 % (0.0-3.0) Basophils (%) (Auto) 1.8 % (0.0-2.0) Sodium Level 138 MMOL/L (136-145) Potassium Level 3.6 MMOL/L (3.5-5.1) Chloride Level 103 MMOL/L (98-107) Carbon Dioxide Level 28 MMOL/L (21-32) Anion Gap 7 mmol/L (5-15) Blood Urea Nitrogen 4 mg/dL (7-18) L Creatinine 0.6 MG/DL (0.55-1.30) Estimat Glomerular Filtration Rate > 60 mL/min (>60) Glucose Level 78 MG/DL (74-106) Calcium Level 8.7 MG/DL (8.5-10.1) Total Bilirubin 0.8 MG/DL (0.2-1.0) Aspartate Amino Transf (AST/SGOT) 217 U/L (15-37) H Alanine Aminotransferase (ALT/SGPT) 566 U/L (12-78) H Alkaline Phosphatase 327 U/L (46-116) H Total Protein 7.1 G/DL (6.4-8.2) Albumin 2.7 G/DL (3.4-5.0) L Globulin 4.4 g/dL Albumin/Globulin Ratio 0.6 (1.0-2.7) L Amylase Level 151 U/L (25-115) H Lipase 384 U/L (73-393) Height (Feet): 5 Height (Inches): 5.00 Weight (Pounds): 198 General Appearance: WD/WN, no apparent distress, alert Cardiovascular: normal rate Respiratory/Chest: normal breath sounds, no respiratory distress Abdominal Exam: normal bowel sounds, non tender, soft, incision site Extremities: normal range of motion, non-tender Mauro Zimmer NP Jun 17, 2018 11:23
[2018-06-17 12:00] VITALS: BP 141/91
[2018-06-17] MEDS: HYDROcodone/Acetamin 10/325 tab ORAL PRN ×3 (12:45→22:20)
--- NOTE | 2018-06-17 12:45 | NUR ---
NURSE NOTES:C/O ABDOMINAL PAIN 6-10/26,STARTED ON NORCO 10/325 WITH RELIEF.
--- NOTE | 2018-06-17 15:45 | NUR ---
NURSE NOTES:MESSAGE LEFT TO EMERGENCY LINE RE:PATIENT WAS SEEN BY AND PATIENT WANTS TO GO HOME TOMORROW MORNING,AND WANTS LAXATIVE.AWAITING TO CALL BACK.CHARGE NURSE(GARRICK) AWARE.
--- NOTE | 2018-06-17 15:54 | NUR ---
P.T NOTE: P.T EVALUATION COMPLETED. PATIENT FUNCTIONING AT BASELINE. SKILLED P.T SERVICE NOT NEEDED AT THIS TIME. THANK YOU FOR THIS REFERRAL. Addendum: 06/17/18 at 1554 by LEEANN GARCIA PT Amended: Links added.
--- NOTE | 2018-06-17 19:54 | NUR ---
HAND-OFF: Report given to SELINA SANTIAGO.PATIENT STABLE.
[2018-06-17 20:00] VITALS: BP 126/76
--- NOTE | 2018-06-17 21:35 | NUR ---
NURSE NOTES: Patient is in bed, AAOx4. VSS, no shortness of breath. Pain 4/10 anterior abdomen. Partial stain on dressing noted. Needs attended to. Bed low, call light within reach.
[2018-06-18] VITALS: BP 150/84
[2018-06-18] MEDS: HYDROcodone/Acetamin 10/325 tab ORAL PRN ×3 (02:06→12:19)
--- NOTE | 2018-06-18 03:53 | NUR ---
NURSE NOTES: received report from Lisbet SANTIAGO.
[2018-06-18 04:00] VITALS: BP 130/81
--- NOTE | 2018-06-18 04:08 | NUR ---
HAND-OFF: Report given to PAMELA Mohamud. Patient stable.
[2018-06-18 08:00] VITALS: BP 137/94
--- NOTE | 2018-06-18 08:05 | NUR ---
HAND-OFF: Report given to charge nurse Janet.
[2018-06-18 08:37] LABS: BASOPHILS % (AUTO) 1.3 % (0.0-2.0); EOSINOPHILS % (AUTO) 3.9 % (0.0-3.0); HEMATOCRIT 34.5 % (37.0-47.0); HEMOGLOBIN 10.8 G/DL (12.0-16.0); LYMPHOCYTES % (AUTO) 34.7 % (20.0-45.0); MEAN CORPUSCULAR VOLUME 74 FL (80-99); MONOCYTES % (AUTO) 6.6 % (1.0-10.0); NEUTROPHILS % (AUTO) 53.4 % (45.0-75.0); PLATELET COUNT 372 K/UL (150-450); RED BLOOD COUNT 4.67 M/UL (4.20-5.40); RED CELL DISTRIBUTION WIDTH 18.8 % (11.6-14.8); WHITE BLOOD COUNT 5.4 K/UL (4.8-10.8)
--- NOTE | 2018-06-18 08:53 | General Progress Note ---
Assessment/Plan Problem List: (1) Cholelithiasis ICD Codes: K80.20 - Calculus of gallbladder without cholecystitis without obstruction SNOMED: 860422022 (2) Choledocholithiasis ICD Codes: K80.50 - Calculus of bile duct without cholangitis or cholecystitis without obstruction SNOMED: 821077539 Assessment/Plan SUMMARY OF FINDINGS: 1. Choledocholithiasis. 2. Status post ERCP, sphincterotomy stone removal. Status post cholecystectomy RECOMMENDATIONS: Follow-up surgical recommendations Pain management Zofran as needed PPI Follow lab Subjective ROS Limited/Unobtainable: Yes Allergies: Coded Allergies: No Known Allergies (Unverified , 06/13/18) Objective Last 24 Hour Vital Signs Date Time Temp Pulse Resp B/P (MAP) Pulse Ox O2 Delivery O2 Flow Rate FiO2 06/18/18 07:29 97.7 06/18/18 04:00 97.7 55 17 130/81 (97) 97 06/18/18 00:00 98.8 72 17 150/84 (106) 97 06/17/18 21:00 Room Air 06/17/18 20:00 99.2 82 18 126/76 (93) 97 06/17/18 12:00 98.2 67 18 141/91 (108) 96 Intake and Output 06/17/18 06/18/18 18:59 06:59 Intake Total 800 ml Balance 800 ml Intake Oral 800 ml # Voids 3 3 Laboratory Tests 06/18/18 07:05: White Blood Count 5.4, Red Blood Count 4.67, Hemoglobin 10.8L, Hematocrit 34.5L , Mean Corpuscular Volume 74L, Mean Corpuscular Hemoglobin 23.2L, Mean Corpuscular Hemoglobin Concent 31.4L, Red Cell Distribution Width 18.8H, Platelet Count 372, Mean Platelet Volume 6.0L, Neutrophils (%) (Auto) 53.4, Lymphocytes (%) (Auto) 34.7, Monocytes (%) (Auto) 6.6, Eosinophils (%) (Auto) 3.9H, Basophils (%) (Auto) 1.3, Sodium Level [Pending], Potassium Level [Pending ], Chloride Level [Pending], Carbon Dioxide Level [Pending], Blood Urea Nitrogen [Pending], Creatinine [Pending], Estimat Glomerular Filtration Rate [ Pending], Glucose Level [Pending], Calcium Level [Pending] Height (Feet): 5 Height (Inches): 5.00 Weight (Pounds): 198 General Appearance: alert EENT: normal ENT inspection Neck: supple Cardiovascular: normal rate Respiratory/Chest: lungs clear Abdomen: soft, hypoactive bowel sounds Extremities: non-tender Bradley Lin MD Jun 18, 2018 08:53
[2018-06-18 08:58] LABS: ANION GAP 5 mmol/L (5-15); BLOOD UREA NITROGEN 4 mg/dL (7-18); CARBON DIOXIDE 31 MMOL/L (21-32); CHLORIDE 103 MMOL/L (98-107); CREATININE 0.7 MG/DL (0.55-1.30); POTASSIUM 3.3 MMOL/L (3.5-5.1); SODIUM 139 MMOL/L (136-145)
[2018-06-18] MEDS: cefTRIAXone 1 GM in NS 55 ML IVPB SCH (09:00)
--- NOTE | 2018-06-18 09:33 | Pulmonology Progress Note ---
Assessment/Plan Assessment/Plan IMPRESSION: Obstructive jaundice with transaminitis. DISCUSSION: status postcholecystectomy discharge home today Subjective Interval Events: None; feelining well Constitutional: Reports: no symptoms HEENT: Repors: no symptoms Respiratory: Reports: no symptoms Cardiovascular: Reports: no symptoms Gastrointestinal/Abdominal: Reports: no symptoms Genitourinary: Reports: no symptoms Allergies: Coded Allergies: No Known Allergies (Unverified , 06/13/18) Objective Last 24 Hour Vital Signs Date Time Temp Pulse Resp B/P (MAP) Pulse Ox O2 Delivery O2 Flow Rate FiO2 06/18/18 07:29 97.7 06/18/18 04:00 97.7 55 17 130/81 (97) 97 06/18/18 00:00 98.8 72 17 150/84 (106) 97 06/17/18 21:00 Room Air 06/17/18 20:00 99.2 82 18 126/76 (93) 97 06/17/18 12:00 98.2 67 18 141/91 (108) 96 Intake and Output 06/17/18 06/18/18 19:00 07:00 Intake Total 800 ml Balance 800 ml Intake Oral 800 ml # Voids 3 3 General Appearance: no acute distress HEENT: normocephalic Respiratory/Chest: chest wall non-tender, lungs clear Cardiovascular: normal peripheral pulses, normal rate Abdomen: normal bowel sounds, soft, non tender Laboratory Tests 06/18/18 07:05: White Blood Count 5.4, Red Blood Count 4.67, Hemoglobin 10.8L, Hematocrit 34.5L , Mean Corpuscular Volume 74L, Mean Corpuscular Hemoglobin 23.2L, Mean Corpuscular Hemoglobin Concent 31.4L, Red Cell Distribution Width 18.8H, Platelet Count 372, Mean Platelet Volume 6.0L, Neutrophils (%) (Auto) 53.4, Lymphocytes (%) (Auto) 34.7, Monocytes (%) (Auto) 6.6, Eosinophils (%) (Auto) 3.9H, Basophils (%) (Auto) 1.3, Sodium Level 139, Potassium Level 3.3L, Chloride Level 103, Carbon Dioxide Level 31, Anion Gap 5, Blood Urea Nitrogen 4L , Creatinine 0.7, Estimat Glomerular Filtration Rate > 60, Glucose Level 87, Calcium Level 9.0 Current Medications Medications (Trade) Dose Ordered Sig/Joselin Route PRN Reason Start Time Stop Time Status Last Admin Dose Admin Acetaminophen (Tylenol) 650 mg Q4H PRN ORAL Mild Pain/Temp > 100.5 06/14/18 00:30 07/14/18 00:29 Acetaminophen (Tylenol) 650 mg Q6H PRN ORAL Mild Pain (Pain Scale 1-3) 06/16/18 16:15 07/16/18 16:14 Acetaminophen/ Hydrocodone Bitart (Petty 10/325) 1 tab Q4H PRN ORAL Severe Pain (Pain Scale 7-10) 06/16/18 16:15 06/23/18 16:14 06/18/18 06:58 Acetaminophen/ Hydrocodone Bitart (Petty 5/325) 1 tab Q4H PRN ORAL Moderate Pain (Pain Scale 4-6) 06/16/18 16:15 06/23/18 16:14 Ceftriaxone Sodium 1 gm/ Sodium Chloride 55 ml @ 110 mls/hr DAILY IVPB 06/14/18 09:00 06/21/18 08:59 06/17/18 08:10 Hydromorphone HCl (Dilaudid) 0.5 mg Q3H PRN IVP Pain Score 1-3 06/16/18 16:15 06/23/18 16:14 Hydromorphone HCl (Dilaudid) 1 mg Q3H PRN IVP pain score 4-6 06/16/18 16:15 06/23/18 16:14 Hydromorphone HCl (Dilaudid) 2 mg Q3H PRN IVP pain score 7-10 06/16/18 16:15 06/23/18 16:14 Hydromorphone HCl (Dilaudid) 2 mg Q4H PRN IVP For Pain 06/14/18 14:30 06/21/18 14:29 06/17/18 08:10 Ketorolac Tromethamine (Toradol 30mg) 15 mg Q6H PRN IV For Pain 06/16/18 16:15 06/21/18 16:14 Ondansetron HCl (Zofran) 4 mg Q6H PRN IVP Nausea & Vomiting 06/15/18 17:45 07/15/18 17:44 06/15/18 17:51 Brain Mcfadden MD Jun 18, 2018 09:33
[2018-06-18] MEDS ORDERED: NORCO 5-325 TA1 EACH ORAL (09:50)
--- NOTE | 2018-06-18 09:51 | Discharge Instructions ---
Discharge Instructions Discharge Instructions Follow Up Orders Outpt followup Dr Mcfadden in one week For Congestive Heart Failure Reminder Report to your physician any weight gain of 5 pounds or more in one week. Brain Mcfadden MD Jun 18, 2018 09:51
--- NOTE | 2018-06-18 10:45 | NUR ---
NURSE NOTES: Patient is in bed awake and able to verbalize needs. Patient is stable with no s/s acute distress. Denies pain at this time. Patient is in good spirits. Patient in bed with call light within reach. Will continue to monitor.
--- NOTE | 2018-06-18 13:00 | NUR ---
NURSE NOTES: Patient discharged home as ordered. Stable, denies pain or SOB. Patient was given thorough discharge instructions, verbalized understanding. Skin is clean, dry, and intact. IV removed without complications. All belongings given to patient. Patient assisted downstairs by RN. All needs met
--- NOTE | 2018-06-19 11:31 | NUR ---
CASE MANAGEMENT: CM review and clinical information (face sheet/ ER MD notes/ H&P/ operative and procedure notes) faxed to SAMANTHA GOMEZ @ [phone]
--- NOTE | 2018-06-21 13:15 | Discharge Summary ---
Discharge Summary Discharge Summary _ DATE OF ADMISSION: 06/13/2018 DATE OF DISCHARGE: 06/18/2018 DISCHARGED BY: Dr. Mcfadden REASON FOR ADMISSION: 27 years old female with no significant past medical history presented with severe,, right upper quadrant abdominal pain without radiation for 1 day. Pain was associated with vomiting , but no diarrhea. Pain was severe, 10 out of 10 on a scale 1-10. Patient reported history of gallstones in the past. Upon evaluation vital signs where stable. Laboratory workup revealed no leukocytosis, hemoglobin 11.6. Potassium 2.8, stable renal parameters. Elevated bilirubin: total bilirubin 2.9, direct bilirubin 2.4. AST 597, ALT 985. Alkaline phosphatase 400. Lipase 97. Abdominal ultrasound revealed cholelithiasis. No gallbladder wall thickening. However positive sonographic Parkinson sign raised concern for acute cholecystitis. Mildly ectatic common bile duct. Slightly increased hepatic echogenicity, possibly indicative of hepatocellular disease such as fatty changes. Patient was admitted for further management due to obstructive jaundice with transaminitis CONSULTANTS: GI specialist Dr. Lin surgery Dr. Kaufman [facility] COURSE: Patient was admitted to medical surgical floor and started on the IV fluids. Patient was kept n.p.o. GI and general surgery consults were requested. Pain management was addressed.. MRCP of the abdomen revealed 9 mm common bile duct stone with resultant extrahepatic and central intrahepatic biliary ductal dilatation. Cholelithiasis. Possible gallbladder neck stone. Mild gallbladder wall edema possibly indicative of acute cholecystitis. Patient subsequently undergone on ERCP , which revealed choledocholithiasis with sphincterotomy stone removal. After ERCP patient was scheduled for laparoscopic cholecystectomy on 06/16. Patient tolerated procedure well. Afterwards patient was started on liquid diet and was slowly advanced as tolerated. Pain management was addressed. Symptomatic treatment provided. Incentive spirometry was encouraged , while patient was in bed. Patient was mobilized early. LFT and bilirubin were closely monitored. Prior to discharge total bilirubin 0.8. AST from 597 down to 217 and ALT from 985 down to 566. Patient was able to tolerate diet. Renal parameters and electrolytes were closely monitored. Electrolytes corrected as needed. Pain management was addressed, and pain was controlled. Patient was stable for discharge home with outpatient follow-up with surgeon in 2 weeks. FINAL DIAGNOSES Obstructive jaundice with transaminitis Choledocholithiasis Acute cholecystitis Cholelithiasis Status post ERCP with sphincterotomy stone removal Post laparoscopic cholecystectomy DISCHARGE MEDICATIONS: See Medication Reconciliation list. DISCHARGE INSTRUCTIONS: Patient was discharged home . Follow up with surgeon in 2 weeks. I have been assigned to dictate discharge summary for this account. I was not involved in the patient's management. America Jones NP Jun 21, 2018 13:15
== END 2018-06-18 13:05 | disposition home or self-care (01) | DRG 263 ==
LOC: EDBD 20:21 → EMR 20:55 → 3E 22:48 → EDBEDREQ 23:13
PROC: 0FC98ZZ Extirpation of Matter from Common Bile Duct, Via Natural or Artificial Opening Endoscopic (ICD-10-PCS; principal; 2018-06-15 08:28)
PROC: 0FT44ZZ Resection of Gallbladder, Percutaneous Endoscopic Approach (ICD-10-PCS; 2018-06-16)
DX: K80.43 Calculus of bile duct with acute cholecystitis with obstruction (principal)
CPT/HCPCS: 36415; 74181; 74328; 76000; 76700; 80048; 80053; 82150; 82248; 82378; 82607; 82728; 82746; 83540; 83550; 83690; 84439; 84443; 84702; 85025; 85044; 85610; 85730; 94003; 94150; 96361; 96374; 96375; 96376; 99285; J2250; J2405; J2710; J8499